=== PATIENT | male | born 1960 | race Caucasian/White ===

== ENCOUNTER 2020-05-25 17:40 | Inpatient (IN) | payer MEDICARE ==
[~2020-05-25] VITALS: Ht 172.7 cm; Wt 152.1 kg
--- NOTE | 2020-05-25 18:21 | PHYS DOC ---
General Adult EDM: Chief Complaint: CHEST PAIN HPI: HPI: Patient is a 60 year old male who presents with shortness of breath and chest pain. He has a past medical history of COPD and hypertension. He was sent over from his primary care for concern after an ECG in the office. He states that 2 weeks ago he started noticing some shortness of breath and chest pain with exertion. He states that he has a heavy pressure over the middle of his chest that does not radiate anywhere. He states it is only present with exertion and takes 3 to 4 minutes with rest to go away. Denies any associated nausea, vomiting, or dizziness. He states that he has also become more short of breath with movement, which resolved with rest. He states this shortness of breath feels different than his regular COPD. He also has increased leg swelling bilaterally. He has had this in the past but it usually goes away with lying flat. He has never tried wrapping his legs. He has gained over 23 pounds in the last 2 weeks. He is on a diuretic and is taking this regularly. He denies dizzi ness, headache, blurry vision, abdominal pain, and numbness or tingling anywhere. Review of Systems: Review of Systems: Constitutional: Denies fever or chills. [] Eyes: Denies change in visual acuity. [] HENT: Denies nasal congestion or sore throat. [] Respiratory: Denies cough, Positive shortness of breath. [] Cardiovascular: Positive chest pain and edema. [] GI: Denies abdominal pain, nausea, vomiting, bloody stools or diarrhea. [] : Denies dysuria. [] Musculoskeletal: Denies back pain or joint pain. [] Integument: Denies rash. [] Neurologic: Denies headache, focal weakness or sensory changes. [] Endocrine: Denies polyuria or polydipsia. [] Lymphatic: Denies swollen glands. [] Psychiatric: Denies depression or anxiety. [] Heart Score: HEART Score for Chest Pain: HEART Score for Chest Pain Response (Comments) Value History Slighlty/Non-Suspicious 0 ECG Normal 0 Age >45 - < 65 1 Troponin < Normal Limit 0 Total 1 Risk Factors: Risk Factors: DM, Current or recent (<one month) smoker, HTN, HLP, family history of CAD, obesity. Risk Scores: Score 0 - 3: 2.5% MACE over next 6 weeks - Discharge Home Score 4 - 6: 20.3% MACE over next 6 weeks - Admit for Clinical Observation Score 7 - 10: 72.7% MACE over next 6 weeks - Early Invasive Strategies Physical Exam: PE: Constitutional: Well developed, well nourished, no acute distress, non-toxic appearance. [] HENT: Normocephalic, atraumatic, bilateral external ears normal, oropharynx moist, no oral exudates, nose normal. [] Eyes: PERRLA, EOMI, conjunctiva normal, no discharge. [] Neck: Normal range of motion, no tenderness, supple, no stridor. [] Cardiovascular:Heart rate regular rhythm, no murmur [] Lungs & Thorax: Bilateral breath sounds clear to auscultation [] Abdomen: Bowel sounds normal, soft, no tenderness, no masses, no pulsatile masses. [] Skin: Warm, dry, no erythema, no rash. [] Back: No tenderness, no CVA tenderness. [] Extremities: No tenderness, no cyanosis, no clubbing, ROM intact, pitting edema bilateral lower extremities. [] Neurologic: Alert and oriented X 3, normal motor function, normal sensory fun ction, no focal deficits noted. [] Psychologic: Affect normal, judgement normal, mood normal. [] EKG: EKG: EKG performed at 550 heart rate 54 sinus bradycardia PAC no ST elevation no ST depression no acute MD [] Radiology/Procedures: Radiology/Procedures: [] Impression: Severe degenerative changes of the left shoulder. Cardiac silhouette is prominent in size. Mild interstitial opacities bilaterally with more focal component at right lung base IMPRESSION: * Mild interstitial opacities bilaterally with more focal component at right lung base. A portion of this could be chronic in nature but mild edema or interstitial infiltrate could have this appearance. Electronically signed by: Zander Jackson MD (05/25/2020 7:25 PM) [id number] Course & Med Decision Making: Course & Med Decision Making Pertinent Labs and Imaging studies reviewed. (See chart for details) [] Dragon Disclaimer: Dragon Disclaimer: This electronic medical record was generated, in whole or in part, using a voice recognition dictation system. Departure Departure Impression: Primary Impression: Congestive heart failure Additional Impressions: Hypertension Shortness of breath Disposition: ADMITTED INPT THIS HOSP Admitting Physician: KIMMIE Condition: STABLE GIN RUANO DO May 25, 2020 18:21
[2020-05-25 18:35] LABS: BASO % 1 % (0-3); EOS # 0.2 x10^3/uL (0.0-0.7); EOS % 3 % (0-3); HEMATOCRIT 36.4 % (39.0-53.0); HEMOGLOBIN 12.1 g/dL (13.0-17.5); LYMPH # 1.1 x10^3/uL (1.0-4.8); LYMPH % 19 % (24-48); MEAN CORPUSCULAR HEMOGLOBIN 32 pg (25-35); MEAN CORPUSCULAR HGB CONC 33 g/dL (31-37); MEAN CORPUSCULAR VOLUME 95 fL (79-100); MONO # 0.5 x10^3/uL (0.0-1.1); MONO % 8 % (0-9); NEUT # 4.1 x10^3/uL (1.8-7.7); NEUT % 70 % (31-73); PLATELET COUNT 225 x10^3/uL (140-400); RED BLOOD COUNT 3.82 x10^6/uL (4.30-5.70); RED CELL DISTRIBUTION WIDTH 13.9 % (11.5-14.5); WHITE BLOOD COUNT 5.9 x10^3/uL (4.0-11.0)
[2020-05-25 18:57] LABS: CALCIUM 8.7 mg/dL (8.5-10.1); CREATININE 1.3 mg/dL (0.7-1.3); GFR 55.9; POTASSIUM 4.3 mmol/L (3.5-5.1)
[2020-05-25] MEDS ORDERED: FUROSEMIDE 40 MG/4 ML VIAL. IVP ONE (19:00)
[2020-05-25] MEDS ORDERED: NITROGLYCERIN OINT 1 GM PACKET. TP ONE (19:00)
[2020-05-25 19:03] LABS: ALBUMIN/GLOBULIN RATIO 0.8 (1.0-1.7); TOTAL BILIRUBIN 0.3 mg/dL (0.2-1.0); TOTAL PROTEIN 6.7 g/dL (6.4-8.2)
[2020-05-25] MEDS ORDERED: LABETALOL 20 MG/4 ML DISP.SYRIN. IVP ONE (19:15)
--- NOTE | 2020-05-25 19:27 | RAD ---
INDICATION: Reason: shortness of breath / Spl. Instructions: / History: COMPARISON: None. FINDINGS: Single view of chest obtained. Severe degenerative changes of the left shoulder. Cardiac silhouette is prominent in size. Mild inter stitial opacities bilaterally with more focal component at right lung base IMPRESSION: * Mild interstitial opacities bilaterally with more focal component at right lung base. A portion of this could be chronic in nature but mild edema or interstitial infiltrate could have this appearance . Electronically signed by: Zander Jackson MD (05/25/2020 7:25 PM) [id number]
--- NOTE | 2020-05-25 21:58 | EKG ---
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
[2020-05-25] MEDS ORDERED: ONDANSETRON PF 4 MG/2 ML VIAL. IV PRN (22:00)
--- NOTE | 2020-05-25 22:30 | NUR ---
PT ADMITTED TO 204 WITH CHEST PAIN ACCOMPANIED BY STAFF VIA WHEELCHAIR. PT ALERT AND ORIENTED X4 DENIES CHEST PAIN AT THIS TIME. ADMISSION ASSESSMENT COMPLETE, ADMIT PACKET GIVEN. DR RHODES CALLED FOR HOME MEDICATIONS. PT ORIENTED TO STAFF UNIT AND POC. CALL LIGHT IN PLACE, WILL CONT TO MONITOR PT STATUS AND SAFETY. PMRN
[2020-05-25 23:06] VITALS: BP 170/82
[2020-05-26] MEDS ORDERED: PANTOPRAZOLE 40 MG TABLET.DR. PO ONE
[2020-05-26] MEDS ORDERED: HYDROcodone/APAP 7.5/325MG 1 TAB TABLET PO ONE
[2020-05-26] MEDS ORDERED: CARVEDILOL 3.125 MG TABLET. PO ONE
[2020-05-26 02:45] VITALS: BP 135/67
[2020-05-26] MEDS ORDERED: BUME2TAB3 PO (05:09)
[2020-05-26] MEDS ORDERED: LOSA-73 PO (05:09)
[2020-05-26] MEDS ORDERED: HYDR-2763 PO (05:09)
[2020-05-26] MEDS ORDERED: ASPI325T8 PO (05:09)
[2020-05-26] MEDS ORDERED: METH-38 PO (05:09)
[2020-05-26] MEDS ORDERED: MULT-496 PO (05:09)
[2020-05-26] MEDS ORDERED: ACET325T9 PO (05:09)
[2020-05-26] MEDS ORDERED: FLUT1BLS3 IH (05:09)
[2020-05-26] MEDS ORDERED: CARV3.12 PO (05:09)
[2020-05-26] MEDS ORDERED: OMEP20TA8 PO (05:09)
[2020-05-26] MEDS ORDERED: ASCO100T4 PO (05:09)
[2020-05-26] MEDS ORDERED: POTA20TA4 PO (05:09)
[2020-05-26] MEDS ORDERED: ALLO300T PO (05:09)
[2020-05-26 07:00] VITALS: BP 142/79
--- NOTE | 2020-05-26 08:50 | PDOC1 ---
History and Physical Date of Admission Date of Admission DATE: 05/26/20 TIME: 08:50 Identification/Chief Complaint Chief Complaint dictated Past Medical History Past Medical History medical history of COPD and hypertension GI: GERD Family History Family History: High Cholestrol, Hypertension Social History Smoke: Quit ALCOHOL: none Drugs: None Current Problem List Problem List Problems Medical Problems: (1) Congestive heart failure Status: Acute (2) Hypertension Status: Acute (3) Shortness of breath Status: Acute Current Medications Current Medications Current Medications Furosemide (Lasix) 40 mg 1X ONCE IVP Last administered on 05/25/20at 19:59; S tart 05/25/20 at 19:00; Stop 05/25/20 at 19:01; Status DC Nitroglycerin (Nitro-Bid Oint) 1 inch 1X ONCE TP ; Start 05/25/20 at 19:00; Stop 05/25/20 at 19:01; Status DC Labetalol HCl (Normodyne Iv Push) 20 mg 1X ONCE IVP Last administered on 05/25/20at 19:52; Start 05/25/20 at 19:15; Stop 05/25/20 at 19:16; Status DC Ondansetron HCl (Zofran) 4 mg PRN Q8HRS PRN IV NAUSEA/VOMITING 1ST CHOICE; Start 05/25/20 at 22:00; Stop 05/26/20 at 21:59 Acetaminophen/ Hydrocodone Bitart (Lortab 7.5/325) 1 tab 1X ONCE PO Last administered on 05/26/20at 00:36; Start 05/26/20 at 00:00; Stop 05/26/20 at 00:01; Status DC Pantoprazole Sodium (Protonix) 40 mg 1X ONCE PO Last administered on 05/26/20at 00:36; Start 05/26/20 at 00:00; Stop 05/26/20 at 00:01; Status DC Carvedilol (Coreg) 3.125 mg 1X ONCE PO Last administered on 05/26/20at 00:37; Start 05/26/20 at 00:00; Stop 05/26/20 at 00:01; Status DC Active Scripts Active Reported Trelegy Ellipta 100-62.5-25 (Fluticasone/Umeclidin/Vilanter) 1 Each Blst.w.dev 1 Puff IH DAILY Vitamin C (Ascorbic Acid) 100 Mg Tablet 1 Tab PO DAILY 30 Days Daily Value (Multivitamin) 1 Each Tablet 1 Tab PO DAILY 30 Days Tylenol (Acetaminophen) 325 Mg Tablet 2 Tab PO PRN Q4HRS Aspirin 325 Mg Tablet 325 Mg PO DAILY Allopurinol 300 Mg Tablet 300 Mg PO DAILY Hydrocodone-Acetamin 7.5-325 (Hydrocodone/Acetaminophen) 1 Each Tablet 1 Each PO TID Robaxin-750 (Methocarbamol) 750 Mg Tablet 750 Mg PO DAILY Losartan Potassium 50 Mg Tablet 50 Mg PO DAILY Coreg (Carvedilol) 3.125 Mg Tablet 3.125 Mg PO BIDWMEALS Omeprazole 20 Mg Tablet.dr 20 Mg PO BID Bumetanide 2 Mg Tablet 2 Mg PO DAILY Potassium Chloride (Potassium Chloride) 20 Meq Tablet.er 20 Meq PO DAILY Allergies Allergies: Coded Allergies: No Known Drug Allergies (Unverified , 05/25/20) ROS Review of System Constitutional: Denies fever or chills. [] Eyes: Denies change in visual acuity. [] HENT: Denies nasal congestion or sore throat. [] Respiratory: Denies cough, Positive shortness of breath. [] Cardiovascular: Positive chest pain and edema. [] GI: Denies abdominal pain, nausea, vomiting, bloody stools or diarrhea. [] : Denies dysuria. [] Musculoskeletal: Denies back pain or joint pain. [] Integument: Denies rash. [] Neurologic: Denies headache, focal weakness or sensory changes. [] Endocrine: Denies polyuria or polydipsia. [] Lymphatic: Denies swollen glands. [] Psychiatric: Denies depression or anxiety. [] 14 pt ros otherwise neg Physical Exam Physical Exam Constitutional: Well developed, well nourished, no acute distress, non-toxic appearance. [] HENT: Normocephalic, atraumatic, bilateral external ears normal, oropharynx moist, no oral exudates, nose normal. [] Eyes: PERRLA, EOMI, conjunctiva normal, no discharge. [] Neck: Normal range of motion, no tenderness, supple, no stridor. [] Cardiovascular:Heart rate regular rhythm, no murmur [] Lungs & Thorax: Bilateral breath sounds clear to auscultation [] Abdomen: Bowel sounds normal, soft, no tenderness, no masses, no pulsatile masses. [] Skin: Warm, dry, no erythema, no rash. [] Back: No tenderness, no CVA tenderness. [] Extremities: No tenderness, no cyanosis, no clubbing, ROM intact, 3 plus pitting edema bilateral lower extremities. [] Neurologic: Alert and oriented X 3, normal motor function, normal sensory function, no focal deficits noted. [] Psychologic: Affect normal, judgment normal, mood normal. [] General: Alert, Oriented X3, Cooperative HEENT: Atraumatic, EOMI, Mucous membr. moist/pink Breasts: Not examined Abdomen: Soft Rectal Exam: not examined PELVIC: Examination not indicated Extremities: No cyanosis Neuro: Normal speech, Cranial nerves 3-12 NL Psych/Mental Status: Mental status NL, Mood NL Vitals Vitals Vital Signs Date Time Temp Pulse Resp B/P (MAP) Pulse Ox O2 Delivery O2 Flow Rate FiO2 05/26/20 07:00 98.0 57 18 142/79 (100) 95 Nasal Cannula 2.0 98.0 Labs Labs Laboratory Tests Test 05/25/20 18:00 05/26/20 01:45 05/26/20 04:00 White Blood Count 5.9 x10^3/uL (4.0-11.0) Red Blood Count 3.82 x10^6/uL (4.30-5.70) Hemoglobin 12.1 g/dL (13.0-17.5) Hematocrit 36.4 % (39.0-53.0) Mean Corpuscular Volume 95 fL (79-100) Mean Corpuscular Hemoglobin 32 pg (25-35) Mean Corpuscular Hemoglobin Concent 33 g/dL (31-37) Red Cell Distribution Width 13.9 % (11.5-14.5) Platelet Count 225 x10^3/uL (140-400) Neutrophils (%) (Auto) 70 % (31-73) Lymphocytes (%) (Auto) 19 % (24-48) Monocytes (%) (Auto) 8 % (0-9) Eosinophils (%) (Auto) 3 % (0-3) Basophils (%) (Auto) 1 % (0-3) Neutrophils # (Auto) 4.1 x10^3/uL (1.8-7.7) Lymphocytes # (Auto) 1.1 x10^3/uL (1.0-4.8) Monocytes # (Auto) 0.5 x10^3/uL (0.0-1.1) Eosinophils # (Auto) 0.2 x10^3/uL (0.0-0.7) Basophils # (Auto) 0.0 x10^3/uL (0.0-0.2) Sodium Level 143 mmol/L (136-145) Potassium Level 4.3 mmol/L (3.5-5.1) Chloride Level 107 mmol/L (98-107) Carbon Dioxide Level 25 mmol/L (21-32) Anion Gap 11 (6-14) Blood Urea Nitrogen 25 mg/dL (8-26) Creatinine 1.3 mg/dL (0.7-1.3) Estimated GFR (Cockcroft-Gault) 55.9 BUN/Creatinine Ratio 19 (6-20) Glucose Level 94 mg/dL (70-99) Calcium Level 8.7 mg/dL (8.5-10.1) Total Bilirubin 0.3 mg/dL (0.2-1.0) Aspartate Amino Transf (AST/SGOT) 21 U/L (15-37) Alanine Aminotransferase (ALT/SGPT) 27 U/L (16-63) Alkaline Phosphatase 82 U/L (46-116) Troponin I Quantitative < 0.017 ng/mL (0.000-0.055) < 0.017 ng/mL (0.000-0.055) < 0.017 ng/mL (0.000-0.055) FF-Bkf-L-Type Natriuretic Peptide 909 pg/mL (0-124) Total Protein 6.7 g/dL (6.4-8.2) Albumin 3.0 g/dL (3.4-5.0) Albumin/Globulin Ratio 0.8 (1.0-1.7) Laboratory Tests Test 05/25/20 18:00 05/26/20 01:45 05/26/20 04:00 White Blood Count 5.9 x10^3/uL (4.0-11.0) Red Blood Count 3.82 x10^6/uL (4.30-5.70) Hemoglobin 12.1 g/dL (13.0-17.5) Hematocrit 36.4 % (39.0-53.0) Mean Corpuscular Volume 95 fL (79-100) Mean Corpuscular Hemoglobin 32 pg (25-35) Mean Corpuscular Hemoglobin Concent 33 g/dL (31-37) Red Cell Distribution Width 13.9 % (11.5-14.5) Platelet Count 225 x10^3/uL (140-400) Neutrophils (%) (Auto) 70 % (31-73) Lymphocytes (%) (Auto) 19 % (24-48) Monocytes (%) (Auto) 8 % (0-9) Eosinophils (%) (Auto) 3 % (0-3) Basophils (%) (Auto) 1 % (0-3) Neutrophils # (Auto) 4.1 x10^3/uL (1.8-7.7) Lymphocytes # (Auto) 1.1 x10^3/uL (1.0-4.8) Monocytes # (Auto) 0.5 x10^3/uL (0.0-1.1) Eosinophils # (Auto) 0.2 x10^3/uL (0.0-0.7) Basophils # (Auto) 0.0 x10^3/uL (0.0-0.2) Sodium Level 143 mmol/L (136-145) Potassium Level 4.3 mmol/L (3.5-5.1) Chloride Level 107 mmol/L (98-107) Carbon Dioxide Level 25 mmol/L (21-32) Anion Gap 11 (6-14) Blood Urea Nitrogen 25 mg/dL (8-26) Creatinine 1.3 mg/dL (0.7-1.3) Estimated GFR (Cockcroft-Gault) 55.9 BUN/Creatinine Ratio 19 (6-20) Glucose Level 94 mg/dL (70-99) Calcium Level 8.7 mg/dL (8.5-10.1) Total Bilirubin 0.3 mg/dL (0.2-1.0) Aspartate Amino Transf (AST/SGOT) 21 U/L (15-37) Alanine Aminotransferase (ALT/SGPT) 27 U/L (16-63) Alkaline Phosphatase 82 U/L (46-116) Troponin I Quantitative < 0.017 ng/mL (0.000-0.055) < 0.017 ng/mL (0.000-0.055) < 0.017 ng/mL (0.000-0.055) XW-Mpb-T-Type Natriuretic Peptide 909 pg/mL (0-124) Total Protein 6.7 g/dL (6.4-8.2) Albumin 3.0 g/dL (3.4-5.0) Albumin/Globulin Ratio 0.8 (1.0-1.7) VTE Prophylaxis Ordered VTE Prophylaxis Devices: No VTE Pharmacological Prophylaxi: Yes Assessment/Plan Assessment/Plan ASSESSMENT/PLAN ASSESSMENT/PLAN 1. Chest pain: UA features. Trops nml EKG SR without acute changes 2. Acute CHF with likely diastolic , peripheral edema 3. Morbid obesity 4. Hx of DM2 and HLP: 5. 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 Morbid obesity 7. HTN: controlled labile episodes 8. COPD: stable plan admit 1. iv diurese over the weekend and will do R/LHC on Friday cvc bed. echo weight loss encouraged, low salt intake dictated Justifications for Admission Other Justification WOODY BRAY MD May 26, 2020 08:50
[2020-05-26 09:58] LABS: MAGNESIUM 2.1 mg/dL (1.8-2.4)
[2020-05-26 09:59] LABS: CHOLESTEROL/HDL RATIO 2.4
--- NOTE | 2020-05-26 10:06 | PDOC2 ---
JAZ CODY BRIAR WOOD SORTER 05/26/20 1006: CARDIAC CONSULT DATE OF CONSULT Date of Consult DATE: 05/26/20 TIME: 09:32 REASON FOR CONSULT Reason for Consult: Chest pain, CHF REFERRING PHYSICIAN Referring Physician: Pepito SOURCE Source: Chart review, Patient HISTORY OF PRESENT ILLNESS HISTORY OF PRESENT ILLNESS This is a pleasant 60 yo male admitted for complains of chest pain and shortness of breath. Reports that he has been having exertional chest pressure and SHAIKH more in the last 10 days. No fever, chills, no anosmia or ageusia. Negative for PND or orthopnea. No nausea vomiting or diarrhea. Reports that he has gained about 23 pounds in the last 2 weeks. He has not increased his bumex dose. Reports that he just feel swollen all over. No hx of CAd or arrhythmia. No hx of PAYAL but does have COPD and not on any O2 supplement. His legs have been more swollen and has pain particularly the left. He had DM2 in the past but lost over 300 pounds since his gastric bypass 11 yrs ago. Also does not take statin. He takes BP med and takes PPI. No recent falls or injury. No prior covid-19 exposure. 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 Smoke: Quit ALCOHOL: none Drugs: None Lives: Alone CURRENT MEDICATIONS CURRENT MEDICATIONS Current Medications Medications (Trade) Dose Ordered Sig/Radha Route PRN Reason Start Time Stop Time Status Last Admin Dose Admin Furosemide (Lasix) 40 mg 1X ONCE IVP 05/25/20 19:00 05/25/20 19:01 DC 05/25/20 19:59 Labetalol HCl (Normodyne Iv Push) 20 mg 1X ONCE IVP 05/25/20 19:15 05/25/20 19:16 DC 05/25/20 19:52 Acetaminophen/ Hydrocodone Bitart (Lortab 7.5/325) 1 tab 1X ONCE PO 05/26/20 00:00 05/26/20 00:01 DC 05/26/20 00:36 Pantoprazole Sodium (Protonix) 40 mg 1X ONCE PO 05/26/20 00:00 05/26/20 00:01 DC 05/26/20 00:36 Carvedilol (Coreg) 3.125 mg 1X ONCE PO 05/26/20 00:00 05/26/20 00:01 DC 05/26/20 00:37 ALLERGIES ALLERGIES: Coded Allergies: No Known Drug Allergies (Unverified , 05/25/20) ROS Review of System 14 point ROS evaluated with pertinent positives noted per HPI PHYSICAL EXAM General: Alert, Oriented X3, Cooperative, No acute distress HEENT: Atraumatic, Mucous membr. moist/pink Lungs: Other (diminished) Heart: Regular rate (SR with PACs), Other (distant heart spounds) Abdomen: Soft, Other (obese) Extremities: No cyanosis, Other (2-3+ bilateral LE pitting edema) Skin: No breakdown, No significant lesion Neuro: Normal speech, Sensation intact Psych/Mental Status: Mental status NL, Mood NL MUSCULOSKELETAL: Osteoarthritic changes both hands VITALS/I&O VITALS/I&O: Vital Signs Date Time Temp Pulse Resp B/P (MAP) Pulse Ox O2 Delivery O2 Flow Rate FiO2 05/26/20 08:00 Room Air 05/26/20 07:00 98.0 57 18 142/79 (100) 95 2.0 98.0 I & O 05/25/20 05/25/20 05/26/20 15:00 23:00 07:00 Intake Total 590 ml Output Total 1900 ml 550 ml Balance -1900 ml 40 ml LABS Lab: Laboratory Tests Test 05/25/20 18:00 05/26/20 01:45 05/26/20 04:00 White Blood Count 5.9 x10^3/uL (4.0-11.0) Red Blood Count 3.82 x10^6/uL (4.30-5.70) L Hemoglobin 12.1 g/dL (13.0-17.5) L Hematocrit 36.4 % (39.0-53.0) L Mean Corpuscular Volume 95 fL (79-100) Mean Corpuscular Hemoglobin 32 pg (25-35) Mean Corpuscular Hemoglobin Concent 33 g/dL (31-37) Red Cell Distribution Width 13.9 % (11.5-14.5) Platelet Count 225 x10^3/uL (140-400) Neutrophils (%) (Auto) 70 % (31-73) Lymphocytes (%) (Auto) 19 % (24-48) L Monocytes (%) (Auto) 8 % (0-9) Eosinophils (%) (Auto) 3 % (0-3) Basophils (%) (Auto) 1 % (0-3) Neutrophils # (Auto) 4.1 x10^3/uL (1.8-7.7) Lymphocytes # (Auto) 1.1 x10^3/uL (1.0-4.8) Monocytes # (Auto) 0.5 x10^3/uL (0.0-1.1) Eosinophils # (Auto) 0.2 x10^3/uL (0.0-0.7) Basophils # (Auto) 0.0 x10^3/uL (0.0-0.2) Sodium Level 143 mmol/L (136-145) Potassium Level 4.3 mmol/L (3.5-5.1) Chloride Level 107 mmol/L (98-107) Carbon Dioxide Level 25 mmol/L (21-32) Anion Gap 11 (6-14) Blood Urea Nitrogen 25 mg/dL (8-26) Creatinine 1.3 mg/dL (0.7-1.3) Estimated GFR (Cockcroft-Gault) 55.9 BUN/Creatinine Ratio 19 (6-20) Glucose Level 94 mg/dL (70-99) Calcium Level 8.7 mg/dL (8.5-10.1) Total Bilirubin 0.3 mg/dL (0.2-1.0) Aspartate Amino Transferase (AST) 21 U/L (15-37) Alanine Aminotransferase (ALT) 27 U/L (16-63) Alkaline Phosphatase 82 U/L (46-116) Troponin I Quantitative < 0.017 ng/mL (0.000-0.055) < 0.017 ng/mL (0.000-0.055) < 0.017 ng/mL (0.000-0.055) XE-Glj-N-Type Natriuretic Peptide 909 pg/mL (0-124) H Total Protein 6.7 g/dL (6.4-8.2) Albumin 3.0 g/dL (3.4-5.0) L Albumin/Globulin Ratio 0.8 (1.0-1.7) L Laboratory Tests 05/25/20 18:00 Laboratory Tests 05/25/20 18:00 ASSESSMENT/PLAN ASSESSMENT/PLAN 1. Chest pain: UA features. Trops nml EKG SR without acute changes 2. Acute CHF with likely diastolic dysfunction 23# wt gain in 2 weeks 3. Morbid obesity 4. Hx of DM2 and HLP: resolved after >300# wt loss from gastric bypass 5. 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 Morbid obesity 7. HTN: controlled with intermittent labile episodes 8. COPD: stable Recommendations 1. Aggressive diurese over the weekend and will do R/LHC on Friday. Risks and benefits discussed and agreeable to proceed. Will obtain Covid-19 PCR in anticipation of the latter 2. TTE and will check venous doppler to discern any associated DVT 3. Lasix therapy, Strict I & O. dietitian consult 4. Continue PPI and ASA. Hold losartan for diuretic optimization. Hold coreg for now with HR noted in the 40-50s no pauses. Will start on imdur. Hydralazine IV PRN 5. Consider outpt PAYAL w/u HECTOR ENRIQUEZ MD 05/26/20 2243: CARDIAC CONSULT ASSESSMENT/PLAN ASSESSMENT/PLAN Pt. seen and examined. Agree with above VB DEVELOPER note. Will plan for right and left heart cath on friday for exertional dyspnea, acute decompensated HF. Discussed risks/yovany, patient willing to proceed. Will follow along. DVT scan negative. JAZ CODY APRN May 26, 2020 10:06 HECTOR ENRIQUEZ MD May 26, 2020 22:43
[2020-05-26] MEDS ORDERED: hydrALAZINE 20 MG/ML VIAL. IVP PRN (10:15)
[2020-05-26 10:26] LABS: CALCIUM 8.6 mg/dL (8.5-10.1); CREATININE 1.3 mg/dL (0.7-1.3); GFR 55.9; POTASSIUM 4.3 mmol/L (3.5-5.1)
--- NOTE | 2020-05-26 10:58 | NUR ---
SS following for discharge planning. SS reviewed pt chart and discussed with pt RN. Pt is from home and is currently on room air. Pt on IV Lasix. Cardiology consulted. Left and right heart cath scheduled for 05/29/2020. COVID19 test pending. SS will continue to follow for discharge planning.
[2020-05-26 11:00] VITALS: BP 165/71
[2020-05-26] MEDS ORDERED: ONDANSETRON PF 4 MG/2 ML VIAL. IV PRN (11:30)
[2020-05-26] MEDS ORDERED: guaiFENesin ORAL 200 MG/10 ML LIQUID. PO PRN (11:30)
[2020-05-26] MEDS ORDERED: SODIUM PHOSPHATES 19/7GM 133 ML ENEMA. PR PRN (11:30)
[2020-05-26] MEDS ORDERED: ACETAMINOPHEN 325 MG TABLET. PO PRN (11:30)
[2020-05-26] MEDS ORDERED: ALBUTEROL SULFATE 2.5 MG/3 ML NEBU. NEB PRN (11:30)
[2020-05-26] MEDS ORDERED: MAG HYDROX/ALUMINUM HYD/SIMETH 30 ML ORAL.SUSP PO PRN (11:30)
[2020-05-26] MEDS ORDERED: DOCUSATE SODIUM 100 MG CAPSULE. PO PRN (11:30)
[2020-05-26] MEDS ORDERED: 0.9 % SODIUM CHLORIDE 10 ML DISP.SYRIN. IV PRN (11:30)
--- NOTE | 2020-05-26 11:54 | HP ---
ADMIT DATE: 05/25/2020 CHIEF COMPLAINT: Chest tightness, swelling of ankles, shortness of breath. HISTORY OF PRESENT ILLNESS: This is a pleasant 60-year-old male from [place], [place]. 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 He states he has been more short of breath and he has had chest discomfort especially with exertion for the last 10-14 days. Denies fever or chills. Denies orthopnea. No nausea or vomiting. No evidence of swelling in his ankles. States he drinks three cups of coffee a day and a large container of water a day. He is a remote smoker, but does not use supplemental oxygen. States that he has diabetes and lost 300 from his gastric bypass 11 years prior. Denies any recent falls or injury. prepares most of the does eat quite a bit of sodium, eats a regular diet. CURRENT MEDICATIONS: Please see medication reconciliation. PAST MEDICAL HISTORY: Significant for hypertension, hyperlipidemia, COPD, esophageal reflux disease, osteoarthritis, gout, diabetes, , Pushpa-en-Y bypass in 2009. FAMILY HISTORY: Positive for obesity. 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 Denies alcohol use. Denies drug use. [place]. CURRENT MEDICATIONS: Please see medication reconciliation. ALLERGIES: He has no known drug allergies. REVIEW OF SYSTEMS: A 14-point review of systems was otherwise negative except for some swelling in the ankles. Denies nausea or vomiting. Denies focal weakness and chest tightness is improved. PHYSICAL EXAMINATION: GENERAL: This is an alert, oriented male, very obese. Weight is 158 kg . NECK: Supple. HEENT: Throat and pharynx clear. LUNGS: Distant, clear breath sounds. CARDIOVASCULAR: Regular rate without murmur, S3 or S4. ABDOMEN: Soft, very obese. EXTREMITIES: 3+ lower extremity pitting edema bilaterally. SKIN: Without breakdown. NEUROLOGIC: Cranial nerves 2-12 grossly intact. There is no facial asymmetry. Muscles of mastication are symmetric. Reasoning and judgment are normal. VITAL SIGNS: Temperature 98, blood pressure 142/79, O2 sat 95% on 2 liters. LABORATORY DATA: White count is 5.9, hemoglobin 12.1, MCV 95, platelets 225,000. Differential 70% segs. Sodium is 143, potassium 4.3, chloride 107, BUN 25, creatinine 1.3, GFR 55.9, glucose 94. Troponin is negative x 3. ProBNP is 909, albumin 3.0. ASSESSMENT: This is a 60-year-old male with' 1. History of heart failure, likely diastolic dysfunction with a 20-pound weight gain in 2 weeks. 2. Peripheral edema. 3. Chest pain, probable esophageal reflux disease. Troponin negative x 5. 4. Extreme morbid obesity. 5. Diabetes. 6. History of gastric bypass on exam. 7. Hypertension. 8. Chronic obstructive pulmonary disease, stable. PLAN: 1. Aggressive diuresis. Cardiology is planning a right and left heart catheterization on Friday. We will obtain COVID-19 PCR. We will obtain a transthoracic echocardiogram to rule out deep venous thrombosis. 2. IV Lasix. 3. . 4. . 5. Continue PPI for GERD and aspirin. Hold losartan, hold Coreg. We will begin Imdur, IV hydralazine p.r.n. for blood pressure control. Consider outpatient sleep apnea study. I discussed the patient's care with nurse on the floor. Anticipate length of stay 4-5 days. Chest x-ray shows interstitial infiltrate, probably consistent with mild pulmonary edema. This is a supplement to the dictated data provided earlier. Total time spent with the patient's exam, chart review was 63 minutes. Greater than 50% of time was spent with the patient's exam, chart review, the patient care, coordination and consultation. WOODY BRAY MD DR: LIANG/hung JOB#: [id number] / [id number]
[2020-05-26] MEDS: POTASSIUM CHLORIDE 20 MEQ TABLET.ER. PO SCH (12:26)
[2020-05-26] MEDS: ASCORBIC ACID 500 MG TABLET PO SCH (12:27)
[2020-05-26] MEDS: MULTIVITAMIN with MINERAL TABLET. PO SCH (12:27)
[2020-05-26] MEDS: ASPIRIN ENTERIC COATED 81 MG TABLET.DR. PO SCH (12:27)
[2020-05-26] MEDS: ALLOPURINOL 300 MG TABLET. PO SCH (12:27)
[2020-05-26] MEDS: ENOXAPARIN 40 MG/0.4 ML SYRINGE. SQ SCH (12:28)
--- NOTE | 2020-05-26 13:03 | RAD ---
MR#: [id number] Date of Study: 05/26/2020 Ordering Physician: JAZ CODY, Referring Physician: JAZ CODY, Tech: Kenzie Farah RDMS, RVT, RTR APPROVED REPORT Bilateral Lower Extremity Venous Study for DVT Patient Location: IN-PATIENT Indications Lower Extremity Edema: Bilateral Findings The bilateral lower extremity deep veins were evaluated for thrombus with color Doppler, spectral and grayscale images. On the right the grayscale images of the common femoral, superficial femoral and popliteal veins do n ot demonstrate any evidence of thrombus and these veins appear to be compressible. The below-knee vei ns were not well visualized but grossly appear to be compressible. Spectral imaging and color Doppler do not reveal any evidence of obstruction to flow with normal respirophasic variation above the knee . Below the knee there is spontaneous flow noted. On the left, the grayscale images of the common femoral, superficial femoral and popliteal veins do n ot demonstrate any evidence of thrombus and these veins appear to be compressible. The below-knee vei ns again were not well visualized but grossly appear to be compressible. Spectral imaging and color D oppler do not reveal any evidence of obstruction to flow with normal respirophasic variation above th e knee. The below-knee veins demonstrate spontaneous flow. Critical Notification Critical Value: No <Conclusion> 1. No clear evidence of DVT in the BLE 2. Right sided bakers cyst measuring 4.6 x 3.9 x 2.3 cm. Signed by : Mick Madsen, Electronically Approved : 05/26/2020 13:03:10
[2020-05-26] MEDS: HYDROcodone/APAP 7.5/325MG 1 TAB TABLET PO SCH ×2 (13:28→20:46)
[2020-05-26 13:35] LABS: BILIRUBIN,URINE NEGATIVE (NEG); CLARITY,URINE CLEAR; COLOR,URINE YELLOW; NITRITE,URINE NEGATIVE (NEG); PH,URINE 6.5 (<5.0-8.0); PROTEIN,URINE >=300 mg/dL (NEG-TRACE)
[2020-05-26 13:47] LABS: HYALINE CASTS, URINE FEW /HPF
[2020-05-26 13:49] LABS: WBC,URINE OCC /HPF (0-4)
[2020-05-26 13:51] LABS: BACTERIA,URINE 0 /HPF (0-FEW)
[2020-05-26] MEDS: FUROSEMIDE 40 MG/4 ML VIAL. IVP SCH (16:46)
[2020-05-26] MEDS ORDERED: CARVEDILOL 3.125 MG TABLET. PO SCH (17:00)
--- NOTE | 2020-05-26 17:07 | NUR ---
rapid covid and pcr covid sent to lab at approx 1700
[2020-05-26 19:43] VITALS: BP 134/65
[2020-05-26 22:53] VITALS: BP 153/80
[2020-05-27 03:28] VITALS: BP 141/68
[2020-05-27] MEDS: PANTOPRAZOLE 40 MG TABLET.DR. PO SCH (05:45)
[2020-05-27 07:00] VITALS: BP 153/57
[2020-05-27 07:17] LABS: BASO % 1 % (0-3); EOS # 0.2 x10^3/uL (0.0-0.7); EOS % 4 % (0-3); HEMATOCRIT 35.6 % (39.0-53.0); LYMPH # 1.1 x10^3/uL (1.0-4.8); LYMPH % 22 % (24-48); MEAN CORPUSCULAR HEMOGLOBIN 32 pg (25-35); MEAN CORPUSCULAR HGB CONC 34 g/dL (31-37); MEAN CORPUSCULAR VOLUME 96 fL (79-100); MONO # 0.5 x10^3/uL (0.0-1.1); MONO % 10 % (0-9); NEUT # 3.1 x10^3/uL (1.8-7.7); NEUT % 64 % (31-73); PLATELET COUNT 192 x10^3/uL (140-400); RED BLOOD COUNT 3.71 x10^6/uL (4.30-5.70); RED CELL DISTRIBUTION WIDTH 13.9 % (11.5-14.5); WHITE BLOOD COUNT 4.8 x10^3/uL (4.0-11.0)
[2020-05-27 07:31] LABS: CALCIUM 8.5 mg/dL (8.5-10.1); CREATININE 1.4 mg/dL (0.7-1.3); GFR 51.4; POTASSIUM 4.3 mmol/L (3.5-5.1)
[2020-05-27] MEDS: ALLOPURINOL 300 MG TABLET. PO SCH (08:37)
[2020-05-27] MEDS: ASCORBIC ACID 500 MG TABLET PO SCH (08:37)
[2020-05-27] MEDS: MULTIVITAMIN with MINERAL TABLET. PO SCH (08:37)
[2020-05-27] MEDS: POTASSIUM CHLORIDE 20 MEQ TABLET.ER. PO SCH (08:40)
[2020-05-27] MEDS: HYDROcodone/APAP 7.5/325MG 1 TAB TABLET PO SCH ×3 (08:40→21:11)
[2020-05-27] MEDS: FUROSEMIDE 40 MG/4 ML VIAL. IVP SCH ×2 (08:41→15:36)
[2020-05-27] MEDS: ASPIRIN ENTERIC COATED 81 MG TABLET.DR. PO SCH (08:41)
[2020-05-27] MEDS: ISOSORBIDE MONONITRATE ER 30 MG TAB.ER.24H PO SCH (08:42)
--- NOTE | 2020-05-27 10:28 | PDOC ---
PROGRESS NOTES Date of Service: DATE: 05/27/20 TIME: 10:28 Chief Complaint Chief Complaint ASSESSMENT: This is a 60-year-old male with' 1. History of heart failure, likely diastolic dysfunction with a 20-pound weight gain in 2 weeks. 2. Peripheral edema. 3. Chest pain, probable esophageal reflux disease. Troponin negative x 5. 4. Extreme morbid obesity. 5. Diabetes. 6. History of gastric bypass on exam. 7. Hypertension. 8. Chronic obstructive pulmonary disease, stable. 9. Right sided bakers cyst measuring 4.6 x 3.9 x 2.3 cm. PLAN: 1. Aggressive diuresis. Cardiology is planning a right and left heart catheterization on Friday. We will obtain COVID-19 PCR. We will obtain a transthoracic echocardiogram venous dopplers to rule out deep venous thrombosis. 2. IV Lasix. 3. dvt prophylaxis 4. weight loss encouraged 5. Continue PPI for GERD and aspirin. Hold losartan, hold Coreg. Imdur, IV hydralazine p.r.n. for blood pressure control. outpatient sleep apnea study. I discussed the patient's care with nurse on the floor. ortho can see as out pt for kennedy's cyst Anticipate length of stay 4-5 days. Chest x-ray shows interstitial infiltrate, probably consistent with mild pulmonary edema. This is a supplement to the dictated data in computer provided earlier. Total time spent with the patient's exam, chart review was 37 minutes. Greater than 50% of time was spent with the patient's exam, chart review, the patient care, coordination and consultation. History of Present Illness History of Present Illness HISTORY OF PRESENT ILLNESS: pleasant 60-year-old male from [place], [place]. 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 He states he has been more short of breath and he has had chest discomfort especially with exertion for the last 10-14 days. Denies fever or chills. Denies orthopnea. No nausea or vomiting. No evidence of swelling in his ankles. States he drinks three cups of coffee a day and a large container of water a day. He is a remote smoker, but does not use supplemental oxygen. States that he has diabetes and lost 300 lbs from his gastric bypass 11 years prior. Denies any recent falls or injury. prepares most of the meals does eat quite a bit of sodium, eats a regular diet. CURRENT MEDICATIONS: Please see medication reconciliation. PAST MEDICAL HISTORY: Significant for hypertension, hyperlipidemia, COPD, esophageal reflux disease, osteoarthritis, gout, diabetes, , Pushpa-en-Y bypass in 2010. FAMILY HISTORY: Positive for obesity. 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 Denies alcohol use. Denies drug use. [place] alone [place] the country near [place]. CURRENT MEDICATIONS: Please see medication reconciliation. ALLERGIES: He has no known drug allergies. REVIEW OF SYSTEMS: A 14-point review of systems was otherwise negative except for swelling in the ankles. Denies nausea or vomiting. Denies focal weakness chest tightness is improved. Vitals Vitals Vital Signs Date Time Temp Pulse Resp B/P (MAP) Pulse Ox O2 Delivery O2 Flow Rate FiO2 05/27/20 09:40 92 Room Air 2.0 05/27/20 08:42 54 153/57 05/27/20 07:00 98.1 16 98.1 Physical Exam General: Alert, Oriented X3, Cooperative Heart: Regular rate (SR with PACs), Normal S1, Other (distant heart spounds) Lungs: Clear, Other (diminished) Abdomen: Soft, No tenderness, Other (very obese) Extremities: No cyanosis Skin: No breakdown, No significant lesion Labs LABS INDICATION: Reason: shortness of breath / Spl. Instructions: / History: COMPARISON: None. FINDINGS: Single view of chest obtained. Severe degenerative changes of the left shoulder. Cardiac silhouette is prominent in size. Mild interstitial opacities bilaterally with more focal component at right lung base IMPRESSION: * Mild interstitial opacities bilaterally with more focal component at right lung base. A portion of this could be chronic in nature but mild edema or interstitial infiltrate could have this appearance. Electronically signed by: Olvin Paul MD (05/25/2020 7:25 PM) [id number] DICTATED and SIGNED BY: OLVIN PAUL MD DATE: 05/25/20 [id number] APPROVED REPORT Bilateral Lower Extremity Venous Study for DVT Patient Location: IN-PATIENT Indications Lower Extremity Edema: Bilateral Findings The bilateral lower extremity deep veins were evaluated for thrombus with color Doppler, spectral and grayscale images. On the right the grayscale images of the common femoral, superficial femoral and popliteal veins do not demonstrate any evidence of thrombus and these veins appear to be compressible. The below-knee veins were not well visualized but grossly appear to be compressible. Spectral imaging and color Doppler do not reveal any evidence of obstruction to flow with normal respirophasic variation above the knee. Below the knee there is spontaneous flow noted. On the left, the grayscale images of the common femoral, superficial femoral and popliteal veins do not demonstrate any evidence of thrombus and these veins appear to be compressible. The below-knee veins again were not well visualized but grossly appear to be compressible. Spectral imaging and color Doppler do not reveal any evidence of obstruction to flow with normal respirophasic variation above the knee. The below-knee veins demonstrate spontaneous flow. Critical Notification Critical Value: No <Conclusion> 1. No clear evidence of DVT in the BLE 2. Right sided bakers cyst measuring 4.6 x 3.9 x 2.3 cm. Signed by : Hector Madsen, Electronically Approved : 05/26/2020 13:03:10 DICTATED and SIGNED BY: HECTOR MADSEN MD Laboratory Tests Test 05/26/20 13:05 05/26/20 17:02 05/27/20 06:20 Urine Collection Type Unknown Urine Color Yellow Urine Clarity Clear Urine pH 6.5 (<5.0-8.0) Urine Specific Maidens 1.015 (1.000-1.030) Urine Protein >=300 mg/dL (NEG-TRACE) Urine Glucose (UA) Negative mg/dL (NEG) Urine Ketones (Stick) Negative mg/dL (NEG) Urine Blood Negative (NEG) Urine Nitrite Negative (NEG) Urine Bilirubin Negative (NEG) Urine Urobilinogen Dipstick 1.0 mg/dL (0.2 mg/dL) Urine Leukocyte Esterase Negative (NEG) Urine RBC 1-2 /HPF (0-2) Urine WBC Occ /HPF (0-4) Urine Squamous Epithelial Cells Few /LPF Urine Bacteria 0 /HPF (0-FEW) Urine Hyaline Casts Few /HPF SARS-CoV-2 Antigen (Rapid) Negative (NEGATIVE) White Blood Count 4.8 x10^3/uL (4.0-11.0) Red Blood Count 3.71 x10^6/uL (4.30-5.70) Hemoglobin 12.0 g/dL (13.0-17.5) Hematocrit 35.6 % (39.0-53.0) Mean Corpuscular Volume 96 fL (79-100) Mean Corpuscular Hemoglobin 32 pg (25-35) Mean Corpuscular Hemoglobin Concent 34 g/dL (31-37) Red Cell Distribution Width 13.9 % (11.5-14.5) Platelet Count 192 x10^3/uL (140-400) Neutrophils (%) (Auto) 64 % (31-73) Lymphocytes (%) (Auto) 22 % (24-48) Monocytes (%) (Auto) 10 % (0-9) Eosinophils (%) (Auto) 4 % (0-3) Basophils (%) (Auto) 1 % (0-3) Neutrophils # (Auto) 3.1 x10^3/uL (1.8-7.7) Lymphocytes # (Auto) 1.1 x10^3/uL (1.0-4.8) Monocytes # (Auto) 0.5 x10^3/uL (0.0-1.1) Eosinophils # (Auto) 0.2 x10^3/uL (0.0-0.7) Basophils # (Auto) 0.0 x10^3/uL (0.0-0.2) Sodium Level 143 mmol/L (136-145) Potassium Level 4.3 mmol/L (3.5-5.1) Chloride Level 108 mmol/L (98-107) Carbon Dioxide Level 30 mmol/L (21-32) Anion Gap 5 (6-14) Blood Urea Nitrogen 25 mg/dL (8-26) Creatinine 1.4 mg/dL (0.7-1.3) Estimated GFR (Cockcroft-Gault) 51.4 Glucose Level 84 mg/dL (70-99) Calcium Level 8.5 mg/dL (8.5-10.1) Assessment and Plan Assessmemt and Plan Problems Medical Problems: (1) Congestive heart failure Status: Acute (2) Hypertension Status: Acute (3) Shortness of breath Status: Acute Comment Review of Relevant I have reviewed the following items paulo (where applicable) has been applied. Labs Laboratory Tests Test 05/25/20 18:00 05/26/20 01:45 05/26/20 04:00 05/26/20 09:55 White Blood Count 5.9 x10^3/uL (4.0-11.0) Red Blood Count 3.82 x10^6/uL (4.30-5.70) Hemoglobin 12.1 g/dL (13.0-17.5) Hematocrit 36.4 % (39.0-53.0) Mean Corpuscular Volume 95 fL (79-100) Mean Corpuscular Hemoglobin 32 pg (25-35) Mean Corpuscular Hemoglobin Concent 33 g/dL (31-37) Red Cell Distribution Width 13.9 % (11.5-14.5) Platelet Count 225 x10^3/uL (140-400) Neutrophils (%) (Auto) 70 % (31-73) Lymphocytes (%) (Auto) 19 % (24-48) Monocytes (%) (Auto) 8 % (0-9) Eosinophils (%) (Auto) 3 % (0-3) Basophils (%) (Auto) 1 % (0-3) Neutrophils # (Auto) 4.1 x10^3/uL (1.8-7.7) Lymphocytes # (Auto) 1.1 x10^3/uL (1.0-4.8) Monocytes # (Auto) 0.5 x10^3/uL (0.0-1.1) Eosinophils # (Auto) 0.2 x10^3/uL (0.0-0.7) Basophils # (Auto) 0.0 x10^3/uL (0.0-0.2) Sodium Level 143 mmol/L (136-145) 143 mmol/L (136-145) Potassium Level 4.3 mmol/L (3.5-5.1) 4.3 mmol/L (3.5-5.1) Chloride Level 107 mmol/L (98-107) 106 mmol/L (98-107) Carbon Dioxide Level 25 mmol/L (21-32) 31 mmol/L (21-32) Anion Gap 11 (6-14) 6 (6-14) Blood Urea Nitrogen 25 mg/dL (8-26) 20 mg/dL (8-26) Creatinine 1.3 mg/dL (0.7-1.3) 1.3 mg/dL (0.7-1.3) Estimated GFR (Cockcroft-Gault) 55.9 55.9 BUN/Creatinine Ratio 19 (6-20) Glucose Level 94 mg/dL (70-99) 99 mg/dL (70-99) Calcium Level 8.7 mg/dL (8.5-10.1) 8.6 mg/dL (8.5-10.1) Total Bilirubin 0.3 mg/dL (0.2-1.0) Aspartate Amino Transf (AST/SGOT) 21 U/L (15-37) Alanine Aminotransferase (ALT/SGPT) 27 U/L (16-63) Alkaline Phosphatase 82 U/L (46-116) Troponin I Quantitative < 0.017 ng/mL (0.000-0.055) < 0.017 ng/mL (0.000-0.055) < 0.017 ng/mL (0.000-0.055) HC-Gif-Z-Type Natriuretic Peptide 909 pg/mL (0-124) Total Protein 6.7 g/dL (6.4-8.2) Albumin 3.0 g/dL (3.4-5.0) Albumin/Globulin Ratio 0.8 (1.0-1.7) Magnesium Level 2.1 mg/dL (1.8-2.4) Triglycerides Level 111 mg/dL (0-150) Cholesterol Level 141 mg/dL (0-200) LDL Cholesterol, Calculated 59 mg/dL (0-100) VLDL Cholesterol, Calculated 22 mg/dL (0-40) Non-HDL Cholesterol Calculated 81 mg/dL (0-129) HDL Cholesterol 60 mg/dL (40-60) Cholesterol/HDL Ratio 2.4 Thyroid Stimulating Hormone (TSH) 1.796 uIU/mL (0.358-3.74) Test 05/26/20 13:05 05/26/20 17:02 05/27/20 06:20 Urine Collection Type Unknown Urine Color Yellow Urine Clarity Clear Urine pH 6.5 (<5.0-8.0) Urine Specific Maidens 1.015 (1.000-1.030) Urine Protein >=300 mg/dL (NEG-TRACE) Urine Glucose (UA) Negative mg/dL (NEG) Urine Ketones (Stick) Negative mg/dL (NEG) Urine Blood Negative (NEG) Urine Nitrite Negative (NEG) Urine Bilirubin Negative (NEG) Urine Urobilinogen Dipstick 1.0 mg/dL (0.2 mg/dL) Urine Leukocyte Esterase Negative (NEG) Urine RBC 1-2 /HPF (0-2) Urine WBC Occ /HPF (0-4) Urine Squamous Epithelial Cells Few /LPF Urine Bacteria 0 /HPF (0-FEW) Urine Hyaline Casts Few /HPF SARS-CoV-2 Antigen (Rapid) Negative (NEGATIVE) White Blood Count 4.8 x10^3/uL (4.0-11.0) Red Blood Count 3.71 x10^6/uL (4.30-5.70) Hemoglobin 12.0 g/dL (13.0-17.5) Hematocrit 35.6 % (39.0-53.0) Mean Corpuscular Volume 96 fL (79-100) Mean Corpuscular Hemoglobin 32 pg (25-35) Mean Corpuscular Hemoglobin Concent 34 g/dL (31-37) Red Cell Distribution Width 13.9 % (11.5-14.5) Platelet Count 192 x10^3/uL (140-400) Neutrophils (%) (Auto) 64 % (31-73) Lymphocytes (%) (Auto) 22 % (24-48) Monocytes (%) (Auto) 10 % (0-9) Eosinophils (%) (Auto) 4 % (0-3) Basophils (%) (Auto) 1 % (0-3) Neutrophils # (Auto) 3.1 x10^3/uL (1.8-7.7) Lymphocytes # (Auto) 1.1 x10^3/uL (1.0-4.8) Monocytes # (Auto) 0.5 x10^3/uL (0.0-1.1) Eosinophils # (Auto) 0.2 x10^3/uL (0.0-0.7) Basophils # (Auto) 0.0 x10^3/uL (0.0-0.2) Sodium Level 143 mmol/L (136-145) Potassium Level 4.3 mmol/L (3.5-5.1) Chloride Level 108 mmol/L (98-107) Carbon Dioxide Level 30 mmol/L (21-32) Anion Gap 5 (6-14) Blood Urea Nitrogen 25 mg/dL (8-26) Creatinine 1.4 mg/dL (0.7-1.3) Estimated GFR (Cockcroft-Gault) 51.4 Glucose Level 84 mg/dL (70-99) Calcium Level 8.5 mg/dL (8.5-10.1) Laboratory Tests Test 05/26/20 13:05 05/26/20 17:02 05/27/20 06:20 Urine Collection Type Unknown Urine Color Yellow Urine Clarity Clear Urine pH 6.5 (<5.0-8.0) Urine Specific Maidens 1.015 (1.000-1.030) Urine Protein >=300 mg/dL (NEG-TRACE) Urine Glucose (UA) Negative mg/dL (NEG) Urine Ketones (Stick) Negative mg/dL (NEG) Urine Blood Negative (NEG) Urine Nitrite Negative (NEG) Urine Bilirubin Negative (NEG) Urine Urobilinogen Dipstick 1.0 mg/dL (0.2 mg/dL) Urine Leukocyte Esterase Negative (NEG) Urine RBC 1-2 /HPF (0-2) Urine WBC Occ /HPF (0-4) Urine Squamous Epithelial Cells Few /LPF Urine Bacteria 0 /HPF (0-FEW) Urine Hyaline Casts Few /HPF SARS-CoV-2 Antigen (Rapid) Negative (NEGATIVE) White Blood Count 4.8 x10^3/uL (4.0-11.0) Red Blood Count 3.71 x10^6/uL (4.30-5.70) Hemoglobin 12.0 g/dL (13.0-17.5) Hematocrit 35.6 % (39.0-53.0) Mean Corpuscular Volume 96 fL (79-100) Mean Corpuscular Hemoglobin 32 pg (25-35) Mean Corpuscular Hemoglobin Concent 34 g/dL (31-37) Red Cell Distribution Width 13.9 % (11.5-14.5) Platelet Count 192 x10^3/uL (140-400) Neutrophils (%) (Auto) 64 % (31-73) Lymphocytes (%) (Auto) 22 % (24-48) Monocytes (%) (Auto) 10 % (0-9) Eosinophils (%) (Auto) 4 % (0-3) Basophils (%) (Auto) 1 % (0-3) Neutrophils # (Auto) 3.1 x10^3/uL (1.8-7.7) Lymphocytes # (Auto) 1.1 x10^3/uL (1.0-4.8) Monocytes # (Auto) 0.5 x10^3/uL (0.0-1.1) Eosinophils # (Auto) 0.2 x10^3/uL (0.0-0.7) Basophils # (Auto) 0.0 x10^3/uL (0.0-0.2) Sodium Level 143 mmol/L (136-145) Potassium Level 4.3 mmol/L (3.5-5.1) Chloride Level 108 mmol/L (98-107) Carbon Dioxide Level 30 mmol/L (21-32) Anion Gap 5 (6-14) Blood Urea Nitrogen 25 mg/dL (8-26) Creatinine 1.4 mg/dL (0.7-1.3) Estimated GFR (Cockcroft-Gault) 51.4 Glucose Level 84 mg/dL (70-99) Calcium Level 8.5 mg/dL (8.5-10.1) Medications Current Medications Furosemide (Lasix) 40 mg 1X ONCE IVP Last administered on 05/25/20at 19:59; Start 05/25/20 at 19:00; Stop 05/25/20 at 19:01; Status DC Nitroglycerin (Nitro-Bid Oint) 1 inch 1X ONCE TP ; Start 05/25/20 at 19:00; Stop 05/25/20 at 19:01; Status DC Labetalol HCl (Normodyne Iv Push) 20 mg 1X ONCE IVP Last administered on 05/25/20at 19:52; Start 05/25/20 at 19:15; Stop 05/25/20 at 19:16; Status DC Ondansetron HCl (Zofran) 4 mg PRN Q8HRS PRN IV NAUSEA/VOMITING 1ST CHOICE; Start 05/25/20 at 22:00; Stop 05/26/20 at 12:12; Status DC Acetaminophen/ Hydrocodone Bitart (Lortab 7.5/325) 1 tab 1X ONCE PO Last administered on 05/26/20at 00:36; Start 05/26/20 at 00:00; Stop 05/26/20 at 00:01; Status DC Pantoprazole Sodium (Protonix) 40 mg 1X ONCE PO Last administered on 05/26/20at 00:36; Start 05/26/20 at 00:00; Stop 05/26/20 at 00:01; Status DC Carvedilol (Coreg) 3.125 mg 1X ONCE PO Last administered on 05/26/20at 00:37; Start 05/26/20 at 00:00; Stop 05/26/20 at 00:01; Status DC Furosemide (Lasix) 40 mg BID94 IVP Last administered on 05/27/20at 08:41; Start 05/26/20 at 16:00 Carvedilol (Coreg) 3.125 mg BIDWMEALS PO ; Start 05/26/20 at 17:00; Stop 05/26/20 at 10:12; Status DC Potassium Chloride (Klor-Con) 20 meq DAILY PO Last administered on 05/27/20at 08:40; Start 05/26/20 at 10:30 Pantoprazole Sodium (Protonix) 40 mg DAILY07 PO Last administered on 05/27/20at 05:45; Start 05/27/20 at 07:00 Aspirin (Ecotrin) 81 mg DAILYWBKFT PO Last administered on 05/27/20at 08:41; Start 05/26/20 at 10:30 Hydralazine HCl (Apresoline Inj) 10 mg PRN Q4HRS PRN IVP ELEVATED BP, SEE COMMENTS; Start 05/26/20 at 10:15 Isosorbide Mononitrate (Imdur) 30 mg DAILY PO Last administered on 05/27/20at 08:42; Start 05/27/20 at 09:00 Sodium Chloride (Normal Saline Flush) 3 ml QSHIFT PRN IV AFTER MEDS AND BLOOD DRAWS; Start 05/26/20 at 11:30 Ondansetron HCl (Zofran) 4 mg PRN Q4HRS PRN IV NAUSEA/VOMITING; Start 05/26/20 at 11:30 Acetaminophen (Tylenol) 650 mg PRN Q4HRS PRN PO TEMP OVER 100.4F OR MILD PAIN; Start 05/26/20 at 11:30 Al Hydroxide/Mg Hydroxide (Mylanta Plus Xs) 30 ml PRN DAILY PRN PO HEARTBURN / GAS; Start 05/26/20 at 11:30 Sodium Monofluorophosphate (Fleet Adult) 133 ml PRN DAILY PRN WI CONSTIPATION; Start 05/26/20 at 11:30 Docusate Sodium (Colace) 100 mg PRN BID PRN PO HARD STOOLS; Start 05/26/20 at 11:30 Albuterol Sulfate (Ventolin Neb Soln) 2.5 mg PRN Q4HRS PRN NEB SHORTNESS OF BREATH; Start 05/26/20 at 11:30 Guaifenesin (Robitussin) 200 mg PRN Q4HRS PRN PO COUGH; Start 05/26/20 at 11:30 Enoxaparin Sodium (Lovenox 40mg Syringe) 40 mg Q24H SQ Last administered on 05/26/20at 12:28; Start 05/26/20 at 12:00 Allopurinol (Zyloprim) 300 mg DAILY PO Last administered on 05/27/20at 08:37; Start 05/26/20 at 13:00 Acetaminophen/ Hydrocodone Bitart (Lortab 7.5/325) 1 tab TID PO Last administered on 05/27/20at 08:40; Start 05/26/20 at 14:00 Ascorbic Acid (Vitamin C) 500 mg DAILY PO Last administered on 05/27/20at 08:37; Start 05/26/20 at 13:00 Multivitamins (Thera M Plus) 1 tab DAILY PO Last administered on 05/27/20at 08:37; Start 05/26/20 at 13:00 Active Scripts Active Reported Trelegy Ellipta 100-62.5-25 (Fluticasone/Umeclidin/Vilanter) 1 Each Blst.w.dev 1 Puff IH DAILY Vitamin C (Ascorbic Acid) 100 Mg Tablet 1 Tab PO DAILY 30 Days Daily Value (Multivitamin) 1 Each Tablet 1 Tab PO DAILY 30 Days Tylenol (Acetaminophen) 325 Mg Tablet 2 Tab PO PRN Q4HRS Aspirin 325 Mg Tablet 325 Mg PO DAILY Allopurinol 300 Mg Tablet 300 Mg PO DAILY Hydrocodone-Acetamin 7.5-325 (Hydrocodone/Acetaminophen) 1 Each Tablet 1 Each PO TID Robaxin-750 (Methocarbamol) 750 Mg Tablet 750 Mg PO DAILY Losartan Potassium 50 Mg Tablet 50 Mg PO DAILY Coreg (Carvedilol) 3.125 Mg Tablet 3.125 Mg PO BIDWMEALS Omeprazole 20 Mg Tablet.dr 20 Mg PO BID Bumetanide 2 Mg Tablet 2 Mg PO DAILY Potassium Chloride (Potassium Chloride) 20 Meq Tablet.er 20 Meq PO DAILY Vitals/I & O Vital Sign - Last 24 Hours 05/26/20 05/26/20 05/26/20 05/26/20 11:00 13:28 14:28 19:43 Temp 98.1 97.9 98.1 97.9 Pulse 66 73 Resp 18 16 B/P (MAP) 165/71 (102) 134/65 (88) Pulse Ox 95 95 95 93 O2 Delivery Nasal Cannula Room Air Room Air Room Air O2 Flow Rate 2.0 2.0 2.0 05/26/20 05/26/20 05/26/20 05/27/20 19:56 20:46 22:53 03:28 Temp 97.6 98.1 97.6 98.1 Pulse 59 59 Resp 22 16 16 B/P (MAP) 153/80 (104) 141/68 (92) Pulse Ox 95 90 O2 Delivery Nasal Cannula Room Air Nasal Cannula Room Air O2 Flow Rate 2.0 2.0 05/27/20 05/27/20 05/27/20 05/27/20 07:00 08:00 08:40 08:42 Temp 98.1 98.1 Pulse 54 54 Resp 16 B/P (MAP) 153/57 (89) 153/57 Pulse Ox 92 92 O2 Delivery Room Air Room Air Nasal Cannula O2 Flow Rate 2.0 05/27/20 09:40 Pulse Ox 92 O2 Delivery Room Air O2 Flow Rate 2.0 Intake and Output 05/26/20 05/26/20 05/27/20 14:59 22:59 06:59 Intake Total 0 ml 500 ml Output Total 800 ml 800 ml 2700 ml Balance -800 ml -800 ml -2200 ml Justicifation of Admission Dx: Justifications for Admission: Justification of Admission Dx: Yes CHF: Hemodynamic Instability WOODY BRAY MD May 27, 2020 10:28
[2020-05-27 10:33] VITALS: BP 137/71
[2020-05-27] MEDS: traMADol 50 MG TABLET PO PRN (12:27)
[2020-05-27] MEDS: ENOXAPARIN 40 MG/0.4 ML SYRINGE. SQ SCH (12:29)
--- NOTE | 2020-05-27 12:38 | NUR ---
pt given education regarding heart cath. Pt also given tablet to watch with education and consents signed. consents are in the chart.
[2020-05-27 14:42] VITALS: BP 151/76
--- NOTE | 2020-05-27 15:50 | CARD ---
MR#: [id number] Date of Study: 05/26/2020 Ordering Physician: JAZ CODY, Referring Physician: JAZ CODY Tech: Suzan Robertson [facility] [[email or web address]] APPROVED REPORT EXAM: Two-dimensional and M-mode echocardiogram with Doppler and color Doppler. Other Information Quality : FairHR: 60bpm Rhythm : NSR INDICATION Congestive Heart Failure RISK FACTORS Hypertension Obesity Hyperlipidemia 2D DIMENSIONS RVDd3.9 (2.9-3.5cm)Left Atrium(2D)3.5 (1.6-4.0cm) IVSd1.5 (0.7-1.1cm)Aortic Root(2D)4.1 (2.0-3.7cm) LVDd5.7 (3.9-5.9cm)LVOT Diameter2.6 (1.8-2.4cm) PWd1.3 (0.7-1.1cm)LVDs3.2 (2.5-4.0cm) FS (%) 42.9 %SV115.9 ml LVEF(%)73.3 (>50%) Aortic Valve AoV Peak Alexis.162.4cm/sAoV VTI36.1cm AO Peak GR.10.6mmHgLVOT Peak Alexis.107.5cm/s AO Mean GR.5mmHgAVA (VMAX)3.38cm2 Mitral Valve MV E Lbnpmbpi15.0cm/sMV DECEL HPXK182te MV A Djeeywnc65.3cm/sE/A Ratio1.2 Pulmonary Valve PV Peak Skzwxavt928.1cm/s LEFT VENTRICLE The left ventricle is normal size. There is mild concentric left ventricular hypertrophy. The left ve ntricular systolic function is normal. The ejection fraction is estimated at 55%. There is normal LV segmental wall motion. Transmitral Doppler flow pattern is Grade II-pseudonormal filling dynamics. RIGHT VENTRICLE The right ventricle is normal size. There is normal right ventricular wall thickness. The right ventr icular systolic function is normal. ATRIA The left atrium size is normal. The right atrium is mildly dilated. The interatrial septum is intact with no evidence for an atrial septal defect or patent foramen ovale as noted on 2-D or Doppler imagi ng. AORTIC VALVE The aortic valve is normal in structure and function. Doppler and Color Flow revealed no significant aortic regurgitation. There is no significant aortic valvular stenosis. MITRAL VALVE The mitral valve is normal in structure and function. There is no evidence of mitral valve prolapse. There is no mitral valve stenosis. Doppler and Color Flow revealed no mitral valve regurgitation note d. TRICUSPID VALVE The tricuspid valve is normal in structure and function. Doppler and Color Flow revealed trace tricus pid regurgitation. There is no tricuspid valve stenosis. PULMONIC VALVE The pulmonary valve is normal in structure and function. Doppler and Color Flow revealed no pulmonic valvular regurgitation. GREAT VESSELS The aortic root is mildly enlarged. The ascending aorta is Mildly dilated. The IVC is normal in size and collapses >50% with inspiration. PERICARDIAL EFFUSION There is no evidence of significant pericardial effusion. Critical Notification Critical Value: No <Conclusion> The left ventricular systolic function is normal. The ejection fraction is estimated at 55%. There is normal LV segmental wall motion. Transmitral Doppler flow pattern is Grade II-pseudonormal filling dynamics. Trace tricuspid regurgitation. There is no evidence of significant pericardial effusion. Signed by : Rocky Lucero, Electronically Approved : 05/27/2020 15:50:37
--- NOTE | 2020-05-27 17:21 | PDOC ---
PROGRESS NOTES Date of Service: DATE: 05/27/20 TIME: 17:21 Subjective Subjective Dyspnea improved, denied any CP, continues to complain of edema Objective Objective Vital Signs Date Time Temp Pulse Resp B/P (MAP) Pulse Ox O2 Delivery O2 Flow Rate FiO2 05/27/20 15:19 95 Room Air 2.0 05/27/20 14:42 97.6 16 151/76 (101) 97.6 05/27/20 10:33 52 Intake and Output 05/27/20 07:00 Intake Total 500 ml Output Total 4300 ml Balance -3800 ml Intake Oral 500 ml Output Urine Total 4300 ml Physical Exam Abdomen: Soft, No tenderness, Other (very obese) Heart: Regular rate (SR with PACs), Normal S1, Other (distant heart spounds) Extremities: No cyanosis, Other (2-3+ edema) General: Alert, Oriented X3, Cooperative HEENT: Atraumatic, EOMI, Mucous membr. moist/pink Lungs: Other (diminished) Neuro: Normal speech Psych/Mental Status: Mental status NL Skin: No breakdown Assessment Assessment 1. Chest pain: NV ruled out. Plan ischemic evaluation possibly with cardiac cath on friday 2. Acute on chronic diastolic HF. Improving with diuresis. 2D echo showed normal LVF 3. HTN: better controlled 4. Hx of DM2 and HLP: resolved after >300# wt loss from gastric bypass 5. 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 COPD: stable Plan Plan of Care Problems Medical Problems: (1) Congestive heart failure Status: Acute (2) Hypertension Status: Acute (3) Shortness of breath Status: Acute Comment Review of Relevant I have reviewed the following items pauol (where applicable) has been applied. Labs Laboratory Tests Test 05/27/20 06:20 White Blood Count 4.8 x10^3/uL (4.0-11.0) Red Blood Count 3.71 x10^6/uL (4.30-5.70) Hemoglobin 12.0 g/dL (13.0-17.5) Hematocrit 35.6 % (39.0-53.0) Mean Corpuscular Volume 96 fL (79-100) Mean Corpuscular Hemoglobin 32 pg (25-35) Mean Corpuscular Hemoglobin Concent 34 g/dL (31-37) Red Cell Distribution Width 13.9 % (11.5-14.5) Platelet Count 192 x10^3/uL (140-400) Neutrophils (%) (Auto) 64 % (31-73) Lymphocytes (%) (Auto) 22 % (24-48) Monocytes (%) (Auto) 10 % (0-9) Eosinophils (%) (Auto) 4 % (0-3) Basophils (%) (Auto) 1 % (0-3) Neutrophils # (Auto) 3.1 x10^3/uL (1.8-7.7) Lymphocytes # (Auto) 1.1 x10^3/uL (1.0-4.8) Monocytes # (Auto) 0.5 x10^3/uL (0.0-1.1) Eosinophils # (Auto) 0.2 x10^3/uL (0.0-0.7) Basophils # (Auto) 0.0 x10^3/uL (0.0-0.2) D-Dimer (Carey) 0.82 ug/mlFEU (0.00-0.50) Sodium Level 143 mmol/L (136-145) Potassium Level 4.3 mmol/L (3.5-5.1) Chloride Level 108 mmol/L (98-107) Carbon Dioxide Level 30 mmol/L (21-32) Anion Gap 5 (6-14) Blood Urea Nitrogen 25 mg/dL (8-26) Creatinine 1.4 mg/dL (0.7-1.3) Estimated GFR (Cockcroft-Gault) 51.4 Glucose Level 84 mg/dL (70-99) Calcium Level 8.5 mg/dL (8.5-10.1) Medications Current Medications Diclofenac Sodium (Voltaren) 1 jolie BID TP ; Start 05/27/20 at 21:00 Isosorbide Mononitrate (Imdur) 30 mg DAILY PO Last administered on 05/27/20at 08:42; Start 05/27/20 at 09:00 Pantoprazole Sodium (Protonix) 40 mg DAILY07 PO Last administered on 05/27/20at 05:45; Start 05/27/20 at 07:00 Tramadol HCl (Ultram) 50 mg PRN Q8HRS PRN PO MODERATE-SEVERE PAIN Last ad ministered on 05/27/20at 12:27; Start 05/27/20 at 12:15 Vitals/I & O Vital Sign - Last 24 Hours 05/26/20 05/26/20 05/26/20 05/26/20 19:43 19:56 20:46 22:53 Temp 97.9 97.6 97.9 97.6 Pulse 73 59 Resp 16 22 16 B/P (MAP) 134/65 (88) 153/80 (104) Pulse Ox 93 95 O2 Delivery Room Air Nasal Cannula Room Air Nasal Cannula O2 Flow Rate 2.0 2.0 05/27/20 05/27/20 05/27/20 05/27/20 03:28 07:00 08:00 08:40 Temp 98.1 98.1 98.1 98.1 Pulse 59 54 Resp 16 16 B/P (MAP) 141/68 (92) 153/57 (89) Pulse Ox 90 92 92 O2 Delivery Room Air Room Air Room Air Nasal Cannula O2 Flow Rate 2.0 05/27/20 05/27/20 05/27/20 05/27/20 08:42 09:40 10:33 12:27 Temp 97.7 97.7 Pulse 54 52 Resp 16 B/P (MAP) 153/57 137/71 (93) Pulse Ox 92 95 95 O2 Delivery Room Air Room Air Room Air O2 Flow Rate 2.0 05/27/20 05/27/20 05/27/20 05/27/20 13:27 14:19 14:42 15:19 Temp 97.6 97.6 Resp 16 B/P (MAP) 151/76 (101) Pulse Ox 95 95 95 95 O2 Delivery Room Air Room Air Room Air Room Air O2 Flow Rate 2.0 Intake and Output 05/26/20 05/26/20 05/27/20 15:00 23:00 07:00 Intake Total 0 ml 500 ml Output Total 800 ml 800 ml 2700 ml Balance -800 ml -800 ml -2200 ml POLO AMOR MD May 27, 2020 17:21
[2020-05-27 19:49] VITALS: BP 148/80
--- NOTE | 2020-05-27 20:37 | RAD ---
Perfusion lung scan Clinical history: shortness of breath COMPARISON: Chest x-rays of 05/25/2020 and 05/27/2020. Technique: 5.5 mCi of Tc 99m MAA was administered intravenously and spot views were obtained the gamm a camera for a nuclear medicine perfusion examination. Static images were reviewed as a Q scan in [facility] region to exclude pulmonary embolism. Findings: Perfusion images show evidence of an enlarged heart and prominence of the central pulmonary vasculat ure. There is relative foot. In the left hemithorax that does not follow a segmental anatomic distrib ution and likely reflects artifact of chest wall soft tissue overlap. This is very low probability for pulmonary embolism based on the modified PIOPED criteria. Impression: very low probability for pulmonary embolism. EXAM: XR CHEST 1V INDICATION: Reason: CHF/POST LUNG SCAN / Spl. Instructions: / History: . TECHNIQUE: Single view COMPARISON: Chest x-ray of 05/25/2020 FINDINGS: The heart size is mildly enlarged.. The great vessels appear unremarkable. There is no hilar or mediastinal mass. Lungs show central pulmonary vascular congestion. No focal infiltrates. There is no pleural effusion or pneumothorax. There are no significant osseous abnormalities. IMPRESSION: Mild cardiomegaly and central pulmonary vascular congestion. Electronically signed by: Ronal Mcdaniel MD (05/27/2020 8:35 PM) [facility] [place]
--- NOTE | 2020-05-27 20:37 | RAD ---
Perfusion lung scan Clinical history: shortness of breath COMPARISON: Chest x-rays of 05/25/2020 and 05/27/2020. Technique: 5.5 mCi of Tc 99m MAA was administered intravenously and spot views were obtained the gamm a camera for a nuclear medicine perfusion examination. Static images were reviewed as a Q scan in [facility] to exclude pulmonary embolism. Findings: Perfusion images show evidence of an enlarged heart and prominence of the central pulmonary vasculat ure. There is relative foot. In the left hemithorax that does not follow a segmental anatomic distrib ution and likely reflects artifact of chest wall soft tissue overlap. This is very low probability for pulmonary embolism based on the modified PIOPED criteria. Impression: very low probability for pulmonary embolism. EXAM: XR CHEST 1V INDICATION: Reason: CHF/POST LUNG SCAN / Spl. Instructions: / History: . TECHNIQUE: Single view COMPARISON: Chest x-ray of 05/25/2020 FINDINGS: The heart size is mildly enlarged.. The great vessels appear unremarkable. There is no hilar or mediastinal mass. Lungs show central pulmonary vascular congestion. No focal infiltrates. There is no pleural effusion or pneumothorax. There are no significant osseous abnormalities. IMPRESSION: Mild cardiomegaly and central pulmonary vascular congestion. Electronically signed by: Ronal Mcdaniel MD (05/27/2020 8:35 PM) [facility] [place]
[2020-05-27] MEDS: DICLOFENAC SODIUM 1% TOPICAL GEL 100GM TUBE. TP SCH (21:10)
[2020-05-27 22:39] VITALS: BP 140/52
[2020-05-28 03:00] VITALS: BP 145/78
[2020-05-28 07:00] VITALS: BP 152/71
[2020-05-28] MEDS: MULTIVITAMIN with MINERAL TABLET. PO SCH (08:23)
[2020-05-28] MEDS: ISOSORBIDE MONONITRATE ER 30 MG TAB.ER.24H PO SCH (08:23)
[2020-05-28] MEDS: ASCORBIC ACID 500 MG TABLET PO SCH (08:23)
[2020-05-28] MEDS: FUROSEMIDE 40 MG/4 ML VIAL. IVP SCH ×2 (08:25→15:14)
[2020-05-28] MEDS: HYDROcodone/APAP 7.5/325MG 1 TAB TABLET PO SCH ×3 (08:25→20:47)
[2020-05-28] MEDS: PANTOPRAZOLE 40 MG TABLET.DR. PO SCH (08:25)
[2020-05-28] MEDS: ALLOPURINOL 300 MG TABLET. PO SCH (08:25)
[2020-05-28] MEDS: ASPIRIN ENTERIC COATED 81 MG TABLET.DR. PO SCH (08:25)
[2020-05-28] MEDS: POTASSIUM CHLORIDE 20 MEQ TABLET.ER. PO SCH (08:26)
[2020-05-28 08:41] LABS: CALCIUM 8.2 mg/dL (8.5-10.1); CREATININE 1.5 mg/dL (0.7-1.3); GFR 47.4; POTASSIUM 4.3 mmol/L (3.5-5.1)
[2020-05-28] MEDS: DICLOFENAC SODIUM 1% TOPICAL GEL 100GM TUBE. TP SCH ×2 (09:03→20:46)
--- NOTE | 2020-05-28 10:19 | PDOC ---
PROGRESS NOTES Date of Service: DATE: 05/28/20 TIME: 10:19 Chief Complaint Chief Complaint ASSESSMENT: This is a 60-year-old male with' 1. History of heart failure, likely diastolic dysfunction with a 20-pound weight gain in 2 weeks. 2. Peripheral edema. 3. Chest pain, probable esophageal reflux disease. Troponin negative x 5. 4. Extreme morbid obesity. 5. Diabetes. 6. History of gastric bypass on exam. 7. Hypertension. 8. Chronic obstructive pulmonary disease, stable. 9. Right sided bakers cyst measuring 4.6 x 3.9 x 2.3 cm. PLAN: 1. Aggressive diuresis. Cardiology is planning a right and left heart catheterization on Friday.05-29 COVID-19 PCR. transthoracic echocardiogram venous dopplers to rule out deep venous thrombosis. 2. IV Lasix. 3. dvt prophylaxis 4. weight loss encouraged 5. Continue PPI for GERD and aspirin. very low probability for pulmonary embolism. Imdur, IV hydralazine p.r.n. for blood pressure control. outpatient sleep apnea study. I discussed the patient's care with nurse on the floor. ortho can see as out pt for kenndey's cyst Anticipate length of stay 4-5 days. Chest x-ray shows interstitial infiltrate, probably consistent with mild pulmonary edema. Total time spent with the patient's exam, chart review was 27 minutes. Greater than 50% of time was spent with the patient's exam, chart review, the patient care, coordination and consultation. History of Present Illness History of Present Illness HISTORY OF PRESENT ILLNESS: pleasant 60-year-old male from [place], [place]. 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 He states he has been more short of breath and he has had chest discomfort especially with exertion for the last 10-14 days. Denies fever or chills. Denies orthopnea. No nausea or vomiting. No evidence of swelling in his ankles. States he drinks three cups of coffee a day and a large container of water a day. He is a remote smoker, but does not use supplemental oxygen. States that he has diabetes and lost 300 lbs from his gastric bypass 11 years prior. Denies any recent falls or injury. 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 CURRENT MEDICATIONS: Please see medication reconciliation. PAST MEDICAL HISTORY: Significant for hypertension, hyperlipidemia, COPD, esophageal reflux disease, osteoarthritis, gout, diabetes, , Pushpa-en-Y bypass in 2010. FAMILY HISTORY: Positive for obesity. 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 Denies alcohol use. Denies drug use. [place]. CURRENT MEDICATIONS: Please see medication reconciliation. ALLERGIES: He has no known drug allergies. REVIEW OF SYSTEMS: A 14-point review of systems was otherwise negative except for swelling in the ankles. Denies nausea or vomiting. Denies focal weakness chest tightness has improved. Vitals Vitals Vital Signs Date Time Temp Pulse Resp B/P (MAP) Pulse Ox O2 Delivery O2 Flow Rate FiO2 05/28/20 08:25 22 Nasal Cannula 2.0 05/28/20 08:23 69 152/71 05/28/20 07:00 97.9 88 97.9 Physical Exam General: Alert, Oriented X3, Cooperative, No acute distress Heart: Regular rate (SR with PACs), Normal S1, Other (distant heart spounds) Lungs: Clear, Other (diminished) Abdomen: Normal bowel sounds, Soft, No tenderness, Other (very obese) Extremities: No clubbing, No cyanosis, Other (2-3+ edema) Skin: No breakdown Labs LABS EXAM: XR CHEST 1V INDICATION: Reason: CHF/POST LUNG SCAN / Spl. Instructions: / History: . TECHNIQUE: Single view COMPARISON: Chest x-ray of 05/25/2020 FINDINGS: The heart size is mildly enlarged.. The great vessels appear unremarkable. There is no hilar or mediastinal mass. Lungs show central pulmonary vascular congestion. No focal infiltrates. There is no pleural effusion or pneumothorax. There are no significant osseous abnormalities. IMPRESSION: Mild cardiomegaly and central pulmonary vascular congestion. Electronically signed by: Ronal Mcdaniel MD (05/27/2020 8:35 PM) [facility] [place] Clinical history: shortness of breath COMPARISON: Chest x-rays of 05/25/2020 and 05/27/2020. Technique: 5.5 mCi of Tc 99m MAA was administered intravenously and spot views were obtained the gamma camera for a nuclear medicine perfusion examination. Static images were reviewed as a Q scan in order to exclude pulmonary embolism. Findings: Perfusion images show evidence of an enlarged heart and prominence of the central pulmonary vasculature. There is relative foot. In the left hemithorax that does not follow a segmental anatomic distribution and likely reflects artifact of chest wall soft tissue overlap. This is very low probability for pulmonary embolism based on the modified PIOPED criteria. Impression: very low probability for pulmonary embolism. EXAM: XR CHEST 1V INDICATION: Reason: CHF/POST LUNG SCAN / Spl. Instructions: / History: . TECHNIQUE: Single view COMPARISON: Chest x-ray of 05/25/2020 Laboratory Tests Test 05/28/20 07:45 Sodium Level 140 mmol/L (136-145) Potassium Level 4.3 mmol/L (3.5-5.1) Chloride Level 107 mmol/L (98-107) Carbon Dioxide Level 31 mmol/L (21-32) Anion Gap 2 (6-14) Blood Urea Nitrogen 25 mg/dL (8-26) Creatinine 1.5 mg/dL (0.7-1.3) Estimated GFR (Cockcroft-Gault) 47.4 Glucose Level 86 mg/dL (70-99) Calcium Level 8.2 mg/dL (8.5-10.1) Assessment and Plan Assessmemt and Plan Problems Medical Problems: (1) Congestive heart failure Status: Acute (2) Hypertension Status: Acute (3) Shortness of breath Status: Acute Comment Review of Relevant I have reviewed the following items paulo (where applicable) has been applied. Labs Laboratory Tests Test 05/26/20 13:05 05/26/20 17:02 05/27/20 06:20 05/28/20 07:45 Urine Collection Type Unknown Urine Color Yellow Urine Clarity Clear Urine pH 6.5 (<5.0-8.0) Urine Specific [facility] 1.015 (1.000-1.030) Urine Protein >=300 mg/dL (NEG-TRACE) Urine Glucose (UA) Negative mg/dL (NEG) Urine Ketones (Stick) Negative mg/dL (NEG) Urine Blood Negative (NEG) Urine Nitrite Negative (NEG) Urine Bilirubin Negative (NEG) Urine Urobilinogen Dipstick 1.0 mg/dL (0.2 mg/dL) Urine Leukocyte Esterase Negative (NEG) Urine RBC 1-2 /HPF (0-2) Urine WBC Occ /HPF (0-4) Urine Squamous Epithelial Cells Few /LPF Urine Bacteria 0 /HPF (0-FEW) Urine Hyaline Casts Few /HPF Coronavirus (PCR) Not detected (Not Detected) SARS-CoV-2 Antigen (Rapid) Negative (NEGATIVE) White Blood Count 4.8 x10^3/uL (4.0-11.0) Red Blood Count 3.71 x10^6/uL (4.30-5.70) Hemoglobin 12.0 g/dL (13.0-17.5) Hematocrit 35.6 % (39.0-53.0) Mean Corpuscular Volume 96 fL (79-100) Mean Corpuscular Hemoglobin 32 pg (25-35) Mean Corpuscular Hemoglobin Concent 34 g/dL (31-37) Red Cell Distribution Width 13.9 % (11.5-14.5) Platelet Count 192 x10^3/uL (140-400) Neutrophils (%) (Auto) 64 % (31-73) Lymphocytes (%) (Auto) 22 % (24-48) Monocytes (%) (Auto) 10 % (0-9) Eosinophils (%) (Auto) 4 % (0-3) Basophils (%) (Auto) 1 % (0-3) Neutrophils # (Auto) 3.1 x10^3/uL (1.8-7.7) Lymphocytes # (Auto) 1.1 x10^3/uL (1.0-4.8) Monocytes # (Auto) 0.5 x10^3/uL (0.0-1.1) Eosinophils # (Auto) 0.2 x10^3/uL (0.0-0.7) Basophils # (Auto) 0.0 x10^3/uL (0.0-0.2) D-Dimer (Carey) 0.82 ug/mlFEU (0.00-0.50) Sodium Level 143 mmol/L (136-145) 140 mmol/L (136-145) Potassium Level 4.3 mmol/L (3.5-5.1) 4.3 mmol/L (3.5-5.1) Chloride Level 108 mmol/L (98-107) 107 mmol/L (98-107) Carbon Dioxide Level 30 mmol/L (21-32) 31 mmol/L (21-32) Anion Gap 5 (6-14) 2 (6-14) Blood Urea Nitrogen 25 mg/dL (8-26) 25 mg/dL (8-26) Creatinine 1.4 mg/dL (0.7-1.3) 1.5 mg/dL (0.7-1.3) Estimated GFR (Cockcroft-Gault) 51.4 47.4 Glucose Level 84 mg/dL (70-99) 86 mg/dL (70-99) Calcium Level 8.5 mg/dL (8.5-10.1) 8.2 mg/dL (8.5-10.1) Laboratory Tests Test 05/28/20 07:45 Sodium Level 140 mmol/L (136-145) Potassium Level 4.3 mmol/L (3.5-5.1) Chloride Level 107 mmol/L (98-107) Carbon Dioxide Level 31 mmol/L (21-32) Anion Gap 2 (6-14) Blood Urea Nitrogen 25 mg/dL (8-26) Creatinine 1.5 mg/dL (0.7-1.3) Estimated GFR (Cockcroft-Gault) 47.4 Glucose Level 86 mg/dL (70-99) Calcium Level 8.2 mg/dL (8.5-10.1) Medications Current Medications Furosemide (Lasix) 40 mg 1X ONCE IVP Last administered on 05/25/20at 19:59; Start 05/25/20 at 19:00; Stop 05/25/20 at 19:01; Status DC Nitroglycerin (Nitro-Bid Oint) 1 inch 1X ONCE TP ; Start 05/25/20 at 19:00; Stop 05/25/20 at 19:01; Status DC Labetalol HCl (Normodyne Iv Push) 20 mg 1X ONCE IVP Last administered on 05/25/20at 19:52; Start 05/25/20 at 19:15; Stop 05/25/20 at 19:16; Status DC Ondansetron HCl (Zofran) 4 mg PRN Q8HRS PRN IV NAUSEA/VOMITING 1ST CHOICE; Start 05/25/20 at 22:00; Stop 05/26/20 at 12:12; Status DC Acetaminophen/ Hydrocodone Bitart (Lortab 7.5/325) 1 tab 1X ONCE PO Last administered on 05/26/20at 00:36; Start 05/26/20 at 00:00; Stop 05/26/20 at 00:01; Status DC Pantoprazole Sodium (Protonix) 40 mg 1X ONCE PO Last administered on 05/26/20at 00:36; Start 05/26/20 at 00:00; Stop 05/26/20 at 00:01; Status DC Carvedilol (Coreg) 3.125 mg 1X ONCE PO Last administered on 05/26/20at 00:37; Start 05/26/20 at 00:00; Stop 05/26/20 at 00:01; Status DC Furosemide (Lasix) 40 mg BID94 IVP Last administered on 05/28/20at 08:25; Start 05/26/20 at 16:00 Carvedilol (Coreg) 3.125 mg BIDWMEALS PO ; Start 05/26/20 at 17:00; Stop 05/26/20 at 10:12; Status DC Potassium Chloride (Klor-Con) 20 meq DAILY PO Last administered on 05/28/20at 08:26; Start 05/26/20 at 10:30 Pantoprazole Sodium (Protonix) 40 mg DAILY07 PO Last administered on 05/28/20at 08:25; Start 05/27/20 at 07:00 Aspirin (Ecotrin) 81 mg DAILYWBKFT PO Last administered on 05/28/20at 08:25; Start 05/26/20 at 10:30 Hydralazine HCl (Apresoline Inj) 10 mg PRN Q4HRS PRN IVP ELEVATED BP, SEE COMMENTS; Start 05/26/20 at 10:15 Isosorbide Mononitrate (Imdur) 30 mg DAILY PO Last administered on 05/28/20at 08:23; Start 05/27/20 at 09:00 Sodium Chloride (Normal Saline Flush) 3 ml QSHIFT PRN IV AFTER MEDS AND BLOOD DRAWS; Start 05/26/20 at 11:30 Ondansetron HCl (Zofran) 4 mg PRN Q4HRS PRN IV NAUSEA/VOMITING; Start 05/26/20 at 11:30 Acetaminophen (Tylenol) 650 mg PRN Q4HRS PRN PO TEMP OVER 100.4F OR MILD PAIN; Start 05/26/20 at 11:30 Al Hydroxide/Mg Hydroxide (Mylanta Plus Xs) 30 ml PRN DAILY PRN PO HEARTBURN / GAS; Start 05/26/20 at 11:30 Sodium Monofluorophosphate (Fleet Adult) 133 ml PRN DAILY PRN ID CONSTIPATION; Start 05/26/20 at 11:30 Docusate Sodium (Colace) 100 mg PRN BID PRN PO HARD STOOLS; Start 05/26/20 at 11:30 Albuterol Sulfate (Ventolin Neb Soln) 2.5 mg PRN Q4HRS PRN NEB SHORTNESS OF BREATH; Start 05/26/20 at 11:30 Guaifenesin (Robitussin) 200 mg PRN Q4HRS PRN PO COUGH; Start 05/26/20 at 11:30 Enoxaparin Sodium (Lovenox 40mg Syringe) 40 mg Q24H SQ Last administered on 05/27/20at 12:29; Start 05/26/20 at 12:00; Stop 05/28/20 at 10:08; Status DC Allopurinol (Zyloprim) 300 mg DAILY PO Last administered on 05/28/20at 08:25; Start 05/26/20 at 13:00 Acetaminophen/ Hydrocodone Bitart (Lortab 7.5/325) 1 tab TID PO Last administered on 05/28/20at 08:25; Start 05/26/20 at 14:00 Ascorbic Acid (Vitamin C) 500 mg DAILY PO Last administered on 05/28/20at 08:23; Start 05/26/20 at 13:00 Multivitamins (Thera M Plus) 1 tab DAILY PO Last administered on 05/28/20at 08:23; Start 05/26/20 at 13:00 Tramadol HCl (Ultram) 50 mg PRN Q8HRS PRN PO MODERATE-SEVERE PAIN Last administered on 05/27/20at 12:27; Start 05/27/20 at 12:15 Diclofenac Sodium (Voltaren) 1 jolie BID TP Last administered on 05/28/20at 09:03; Start 05/27/20 at 21:00 Enoxaparin Sodium (Lovenox 60mg Syringe) 60 mg Q12HR SQ ; Start 05/28/20 at 11:00 Active Scripts Active Reported Trelegy Ellipta 100-62.5-25 (Fluticasone/Umeclidin/Vilanter) 1 Each Blst.w.dev 1 Puff IH DAILY Vitamin C (Ascorbic Acid) 100 Mg Tablet 1 Tab PO DAILY 30 Days Daily Value (Multivitamin) 1 Each Tablet 1 Tab PO DAILY 30 Days Tylenol (Acetaminophen) 325 Mg Tablet 2 Tab PO PRN Q4HRS Aspirin 325 Mg Tablet 325 Mg PO DAILY Allopurinol 300 Mg Tablet 300 Mg PO DAILY Hydrocodone-Acetamin 7.5-325 (Hydrocodone/Acetaminophen) 1 Each Tablet 1 Each PO TID Robaxin-750 (Methocarbamol) 750 Mg Tablet 750 Mg PO DAILY Losartan Potassium 50 Mg Tablet 50 Mg PO DAILY Coreg (Carvedilol) 3.125 Mg Tablet 3.125 Mg PO BIDWMEALS Omeprazole 20 Mg Tablet.dr 20 Mg PO BID Bumetanide 2 Mg Tablet 2 Mg PO DAILY Potassium Chloride (Potassium Chloride) 20 Meq Tablet.er 20 Meq PO DAILY Vitals/I & O Vital Sign - Last 24 Hours 05/27/20 05/27/20 05/27/20 05/27/20 10:33 12:27 13:27 14:19 Temp 97.7 97.7 Pulse 52 Resp 16 B/P (MAP) 137/71 (93) Pulse Ox 95 95 95 95 O2 Delivery Room Air Room Air Room Air Room Air 05/27/20 05/27/20 05/27/20 05/27/20 14:42 15:19 19:49 20:20 Temp 97.6 97.8 97.6 97.8 Pulse 57 Resp 16 16 B/P (MAP) 151/76 (101) 148/80 (102) Pulse Ox 95 95 93 O2 Delivery Room Air Room Air Room Air Room Air O2 Flow Rate 2.0 05/27/20 05/27/20 05/27/20 05/28/20 21:11 22:19 22:39 03:00 Temp 98.0 97.8 98.0 97.8 Pulse 58 62 Resp 18 18 16 16 B/P (MAP) 140/52 (81) 145/78 (100) Pulse Ox 91 95 O2 Delivery Room Air Room Air Room Air Room Air 05/28/20 05/28/20 05/28/20 05/28/20 07:00 08:00 08:23 08:25 Temp 97.9 97.9 Pulse 69 69 Resp 16 22 B/P (MAP) 152/71 (98) 152/71 Pulse Ox 88 O2 Delivery Room Air Room Air Nasal Cannula O2 Flow Rate 2.0 Intake and Output 05/27/20 05/27/20 05/28/20 15:00 23:00 07:00 Intake Total 1040 ml 970 ml Output Total 1975 ml 300 ml 3025 ml Balance -935 ml -300 ml -2055 ml Justicifation of Admission Dx: Justifications for Admission: Justification of Admission Dx: Yes CHF: Hemodynamic Instability WOODY BRAY MD May 28, 2020 10:19
[2020-05-28 10:47] VITALS: BP 158/73
--- NOTE | 2020-05-28 12:15 | PDOC ---
PROGRESS NOTES Date of Service: DATE: 05/28/20 TIME: 12:13 Subjective Subjective Dyspnea and edema improved. Denied any chest pain. Objective Objective Vital Signs Date Time Temp Pulse Resp B/P (MAP) Pulse Ox O2 Delivery O2 Flow Rate FiO2 05/28/20 10:47 97.6 53 16 158/73 (101) 97 Room Air 97.6 05/28/20 10:37 2.0 Intake and Output 05/28/20 07:00 Intake Total 2010 ml Output Total 5300 ml Balance -3290 ml Intake Oral 2010 ml Output Urine Total 5300 ml # Bowel Movements 1 Physical Exam Abdomen: Normal bowel sounds, Soft, No tenderness, Other (very obese) Heart: Regular rate (SR with PACs), Normal S1, Other (distant heart spounds) Extremities: No clubbing, No cyanosis, Other (1-2+ edema) General: Alert, Oriented X3, Cooperative, No acute distress HEENT: Atraumatic, EOMI, Mucous membr. moist/pink Lungs: Other (diminished) Neuro: Normal speech Psych/Mental Status: Mental status NL Skin: No breakdown Assessment Assessment 1. Chest pain: [place] ruled out. Plan ischemic evaluation possibly with cardiac cath on friday 2. Acute on chronic diastolic HF. Improving with diuresis. 2D echo showed normal LVF 3. HTN: better controlled but slightly elevated. Resume Coreg. 4. Hx of DM2 and HLP: resolved after >300# wt loss from gastric bypass 5. 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 COPD: stable Plan Plan of Care Problems Medical Problems: (1) Congestive heart failure Status: Acute (2) Hypertension Status: Acute (3) Shortness of breath Status: Acute Comment Review of Relevant I have reviewed the following items paulo (where applicable) has been applied. Labs Laboratory Tests Test 05/28/20 07:45 Sodium Level 140 mmol/L (136-145) Potassium Level 4.3 mmol/L (3.5-5.1) Chloride Level 107 mmol/L (98-107) Carbon Dioxide Level 31 mmol/L (21-32) Anion Gap 2 (6-14) Blood Urea Nitrogen 25 mg/dL (8-26) Creatinine 1.5 mg/dL (0.7-1.3) Estimated GFR (Cockcroft-Gault) 47.4 Glucose Level 86 mg/dL (70-99) Calcium Level 8.2 mg/dL (8.5-10.1) Medications Current Medications Diclofenac Sodium (Voltaren) 1 jolie BID TP Last administered on 05/28/20at 09:03; Start 05/27/20 at 21:00 Enoxaparin Sodium (Lovenox 60mg Syringe) 60 mg Q12HR SQ Last administered on 05/28/20at 11:00; Start 05/28/20 at 11:00 Tramadol HCl (Ultram) 50 mg PRN Q8HRS PRN PO MODERATE-SEVERE PAIN Last administered on 05/27/20at 12:27; Start 05/27/20 at 12:15 Vitals/I & O Vital Sign - Last 24 Hours 05/27/20 05/27/20 05/27/20 05/27/20 12:27 13:27 14:19 14:42 Temp 97.6 97.6 Resp 16 B/P (MAP) 151/76 (101) Pulse Ox 95 95 95 95 O2 Delivery Room Air Room Air Room Air Room Air 05/27/20 05/27/20 05/27/20 05/27/20 15:19 19:49 20:20 21:11 Temp 97.8 97.8 Pulse 57 Resp 16 18 B/P (MAP) 148/80 (102) Pulse Ox 95 93 O2 Delivery Room Air Room Air Room Air Room Air O2 Flow Rate 2.0 05/27/20 05/27/20 05/28/20 05/28/20 22:19 22:39 03:00 07:00 Temp 98.0 97.8 97.9 98.0 97.8 97.9 Pulse 58 62 69 Resp 18 16 16 16 B/P (MAP) 140/52 (81) 145/78 (100) 152/71 (98) Pulse Ox 91 95 88 O2 Delivery Room Air Room Air Room Air Room Air 05/28/20 05/28/20 05/28/20 05/28/20 08:00 08:23 08:25 10:37 Pulse 69 Resp 22 B/P (MAP) 152/71 Pulse Ox 88 O2 Delivery Room Air Nasal Cannula Room Air O2 Flow Rate 2.0 2.0 05/28/20 10:47 Temp 97.6 97.6 Pulse 53 Resp 16 B/P (MAP) 158/73 (101) Pulse Ox 97 O2 Delivery Room Air Intake and Output 05/27/20 05/27/20 05/28/20 15:00 23:00 07:00 Intake Total 1040 ml 970 ml Output Total 1975 ml 300 ml 3025 ml Balance -935 ml -300 ml -2055 ml POLO AMOR MD May 28, 2020 12:15
[2020-05-28 14:51] VITALS: BP 156/73
[2020-05-28] MEDS: CARVEDILOL 3.125 MG TABLET. PO SCH (17:15)
--- NOTE | 2020-05-28 17:50 | NUR ---
pt reported dark stool this shift. pt stated that he had used pepto bismol multiple times prior to admission. pt instructed to call for staff to observe next bm.
[2020-05-28 19:11] VITALS: BP 128/61
[2020-05-28 23:19] VITALS: BP 154/61
[2020-05-29] VITALS (13 sets, daily range): BP systolic 133–174; BP diastolic 64–100
[2020-05-29 07:31] LABS: BASO % 1 % (0-3); EOS # 0.2 x10^3/uL (0.0-0.7); EOS % 3 % (0-3); HEMATOCRIT 37.5 % (39.0-53.0); HEMOGLOBIN 12.4 g/dL (13.0-17.5); LYMPH # 0.9 x10^3/uL (1.0-4.8); LYMPH % 15 % (24-48); MEAN CORPUSCULAR HEMOGLOBIN 32 pg (25-35); MEAN CORPUSCULAR HGB CONC 33 g/dL (31-37); MEAN CORPUSCULAR VOLUME 96 fL (79-100); MONO # 0.6 x10^3/uL (0.0-1.1); MONO % 10 % (0-9); NEUT # 4.4 x10^3/uL (1.8-7.7); NEUT % 72 % (31-73); PLATELET COUNT 217 x10^3/uL (140-400); RED BLOOD COUNT 3.91 x10^6/uL (4.30-5.70); RED CELL DISTRIBUTION WIDTH 13.8 % (11.5-14.5); WHITE BLOOD COUNT 6.1 x10^3/uL (4.0-11.0)
[2020-05-29 07:54] LABS: ALBUMIN 2.7 g/dL (3.4-5.0); ALBUMIN/GLOBULIN RATIO 0.8 (1.0-1.7); CALCIUM 8.2 mg/dL (8.5-10.1); CREATININE 1.4 mg/dL (0.7-1.3); GFR 51.4; POTASSIUM 4.2 mmol/L (3.5-5.1); TOTAL BILIRUBIN 0.4 mg/dL (0.2-1.0); TOTAL PROTEIN 6.2 g/dL (6.4-8.2)
--- NOTE | 2020-05-29 07:57 | PDOC ---
[facility] PROGRESS NOTE Date of Service DOS: DATE: 05/29/20 TIME: 07:53 Chief Complaint Chief Complaint A/P: Acute CHF with diastolic dysfunction with a 20-pound weight gain in 2 weeks. Peripheral edema. Chest pain, probable esophageal reflux disease. Troponin negative x 5. Extreme morbid obesity - Hx of Pushpa-en-Y: 11 yrs ago Diabetes. Hypertension. Chronic obstructive pulmonary disease, stable. Right sided bakers cyst measuring 4.6 x 3.9 x 2.3 cm. Chest pain: [place] ruled out. Plan ischemic evaluation possibly with cardiac cath on friday DM2 and HLP - improved after >300# wt loss from gastric bypass PLAN: 1. Aggressive diuresis. Cardiology is planning a right and left heart c atheterization on Friday.05-29 COVID-19 PCR. transthoracic echocardiogram venous dopplers to rule out deep venous thrombosis. 2. IV Lasix. 3. dvt prophylaxis 4. weight loss encouraged 5. Continue PPI for GERD and aspirin. very low probability for pulmonary embolism. Imdur, IV hydralazine p.r.n. for blood pressure control. outpatient sleep apnea study. I discussed the patient's care with nurse on the floor. ortho can see as out pt for kennedy's cyst Anticipate length of stay 4-5 days. Chest x-ray shows interstitial infiltrate, probably consistent with mild pulmonary edema. Total time spent with the patient's exam, chart review was 27 minutes. Greater than 50% of time was spent with the patient's exam, chart review, the patient care, coordination and consultation. 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 He states he has been more short of breath and he has had chest discomfort especially with exertion for the last 10-14 days. Denies fever or chills. Denies orthopnea. No nausea or vomiting. No evidence of swelling in his ankles. States he drinks three cups of coffee a day and a large container of water a day. He is a remote smoker, but does not use supplemental oxygen. States that he has diabetes and lost 300 lbs from his gastric bypass 11 years prior. Denies any recent falls or injury. 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 Chest radiograph with no acute abnormality. Pulmonary perfusion low probability of PE and LE venous dopplers negative for DVT. Improved with diuresis. Cardiology consulted. Less short of breath. Still with mild chest discomfort. Afebrile. CR down to 1.4. Vitals/I&O Vitals/I&O: Vital Signs Date Time Temp Pulse Resp B/P (MAP) Pulse Ox O2 Delivery O2 Flow Rate FiO2 05/29/20 03:27 98.6 62 16 133/64 (87) 94 Nasal Cannula 1.5 98.6 I & O 05/28/20 05/28/20 05/29/20 15:00 23:00 07:00 Intake Total 1800 ml 540 ml Output Total 2050 ml 2900 ml 2425 ml Balance -2050 ml -1100 ml -1885 ml Physical Exam General: Alert, Oriented X3, Cooperative, No acute distress Heart: Regular rate (SR with PACs), Normal S1, Other (distant heart spounds) Lungs: Clear, Other (diminished) Abdomen: Normal bowel sounds, Soft, No tenderness, Other (very obese) Extremities: No clubbing, No cyanosis, Other (1-2+ edema) Skin: No breakdown Assessment and Plan Assessmemt and Plan Problems Medical Problems: (1) Congestive heart failure Status: Acute (2) Hypertension Status: Acute (3) Shortness of breath Status: Acute Comment Review of Relevant I have reviewed the following items paulo (where applicable) has been applied. Medications: Current Medications Medications (Trade) Dose Ordered Sig/Radha Route PRN Reason Start Time Stop Time Status Last Admin Dose Admin Enoxaparin Sodium (Lovenox 60mg Syringe) 60 mg Q12HR SQ 05/28/20 11:00 05/28/20 11:00 Carvedilol (Coreg) 3.125 mg BIDWMEALS PO 05/28/20 17:00 05/28/20 17:15 Justifications for Admission General Conditions Other justification for admit: acute chf Other Justification ANGELICA PUGA MD May 29, 2020 07:56
[2020-05-29] MEDS: ASPIRIN ENTERIC COATED 81 MG TABLET.DR. PO SCH (08:23)
[2020-05-29] MEDS: HYDROcodone/APAP 7.5/325MG 1 TAB TABLET PO SCH ×3 (08:24→20:53)
[2020-05-29] MEDS: CARVEDILOL 3.125 MG TABLET. PO SCH ×2 (08:25→17:20)
[2020-05-29] MEDS: PANTOPRAZOLE 40 MG TABLET.DR. PO SCH (08:28)
[2020-05-29] MEDS: ISOSORBIDE MONONITRATE ER 30 MG TAB.ER.24H PO SCH (08:28)
[2020-05-29] MEDS ORDERED: fentaNYL PF VIAL 100 MCG/2 ML VIAL ONE ×2 (10:24→12:41)
[2020-05-29] MEDS ORDERED: VERAPAMIL 5 MG/2 ML VIAL. ONE (10:25)
[2020-05-29] MEDS ORDERED: MIDAZOLAM HCL/PF 5 MG/5 ML VIAL. ONE (10:25)
[2020-05-29] MEDS ORDERED: HEPARIN for IV BOLUS 10,000 UNIT/10 ML VIAL. ONE (10:25)
[2020-05-29] MEDS ORDERED: NITROGLYCERIN 200 MCG/2 ML SYRINGE FOR CATH/VASC LAB. ONE ×2 (10:25→13:11)
[2020-05-29] MEDS ORDERED: IODIXANOL 320 MG/ML 100 ML VIAL. ONE ×2 (10:26→12:26)
[2020-05-29] MEDS ORDERED: LIDOCAINE 1% Multi-Dose 20 ML VIAL. ONE (10:26)
[2020-05-29] MEDS ORDERED: MIDAZOLAM HCL/PF 5 MG/5 ML VIAL. IV ONE (11:45)
[2020-05-29] MEDS ORDERED: fentaNYL PF VIAL 100 MCG/2 ML VIAL IV ONE (11:45)
[2020-05-29] MEDS ORDERED: LIDOCAINE 1% Multi-Dose 20 ML VIAL. INJ ONE (11:45)
[2020-05-29] MEDS ORDERED: IODIXANOL 320 MG/ML 100 ML VIAL. IART ONE (11:45)
[2020-05-29] MEDS ORDERED: VERAPAMIL 5 MG/2 ML VIAL. IART ONE (11:45)
[2020-05-29] MEDS ORDERED: NITROGLYCERIN 200 MCG/2 ML SYRINGE FOR CATH/VASC LAB. IART ONE (11:45)
[2020-05-29] MEDS ORDERED: HEPARIN for IV BOLUS 10,000 UNIT/10 ML VIAL. IART ONE (11:45)
[2020-05-29] MEDS ORDERED: TIROFIBAN 5MG -0.9% NS 100 ML IV ONE ×2 (12:15→12:25)
[2020-05-29] MEDS ORDERED: TIROFIBAN 5MG -0.9% NS 100 ML IV PRN (12:18)
[2020-05-29] MEDS ORDERED: NITROGLYCERIN 200 MCG/2 ML SYRINGE FOR CATH/VASC LAB. ICAR ONE (12:30)
[2020-05-29] MEDS ORDERED: HEPARIN for IV BOLUS 10,000 UNIT/10 ML VIAL. IV ONE (12:30)
[2020-05-29] MEDS ORDERED: PRASUGREL 10 MG TABLET. PO ONE (12:30)
[2020-05-29] MEDS ORDERED: PRASUGREL 10 MG TABLET. ONE ×2 (12:51→13:10)
[2020-05-29] MEDS: ASCORBIC ACID 500 MG TABLET PO SCH (14:19)
[2020-05-29] MEDS: MULTIVITAMIN with MINERAL TABLET. PO SCH (14:19)
[2020-05-29] MEDS: ALLOPURINOL 300 MG TABLET. PO SCH (14:19)
[2020-05-29] MEDS: POTASSIUM CHLORIDE 20 MEQ TABLET.ER. PO SCH (14:19)
[2020-05-29] MEDS: FUROSEMIDE 40 MG/4 ML VIAL. IVP SCH ×2 (14:20→16:00)
[2020-05-29] MEDS: DICLOFENAC SODIUM 1% TOPICAL GEL 100GM TUBE. TP SCH ×2 (14:29→20:51)
--- NOTE | 2020-05-29 14:50 | CARD ---
MR#: [id number] Date of Study: 05/29/2020 Ordering Physician: POLO AMOR, Referring Physician: POLO AMOR, Tech: Sarah Costa APPROVED REPORT Technologist: Sarah Costa Nurse: Sole Pérez R.N. Procedure(s) performed: fl time: 10.8 mins dose: 137 gycm2 contrast: 150 ml moderate sedation: 90 MINS RHC, LHC, PCI of the LAD, IVUS of the LAD HISTORY : The patient is a 60 year-old male with a history of . INDICATION The indication(s) include : unstable angina , dyspnea. [facility] Clinical Frailty Scale [facility] Clinical Frailty Scale: Mildly Frail Heart Failure Heart Failure: Yes If Yes, Newly Diagnosed: Yes If Yes, HF Type: Diastolic If Yes, NYHA Class: Class III CASE TECHNIQUE IV conscious sedation was used throughout procedure with appropriate monitoring and was performed in the presence of a registered nurse who was an independent trained observer other than the physician p erforming the procedure. During this case, Fluoroscopy and low osmolar contrast were used for imaging . Specimen(s) Removed: N/A Estimated Blood loss: 20 cc's. PROCEDURE NARRATIVE Clinical information: 60-year-old man who presented to the hospital in setting of accelerating unstable angina and worsenin g diastolic heart failure. He was referred to the hospital by his primary care physician for worseni ng symptoms. Procedure details: After appropriate informed consent the right wrist and right neck were prepped and draped in usual st erile fashion. Under 2% lidocaine local anesthesia a 5 [place]an sheath was placed in the right interna l jugular vein and a 6 [place]an sheath was placed in the right radial artery. Next, diagnostic angiogr aphy was performed with a 6 [place]andan TIG catheter and LVEDP was obtained with a 6 [place] TIG catheter a nd pullback was performed. Right heart catheterization was performed with a 5 [place]an PA catheter. Findings: RA 0 RV 24/1/4 PA 25/4/16 Wedge 4 mmHg PA saturation 70% FA saturation 98% Faina cardiac output 7.1 L/min, cardiac index 2.8 LVEDP 3 mmHg No LV to aortic pullback gradient Left ventriculogram deferred due to known normal ejection fraction without significant valvular disea se by echo Coronary angiography: Left main is a large-caliber vessel with mild luminal irregularities LAD is a large-caliber vessel with a mid 90% stenosis Left circumflex is a moderate caliber nondominant vessel with mild luminal irregularities of up to 30 % Ramus is a moderate caliber vessel with mild luminal irregularities RCA is a large caliber dominant vessel with mild luminal irregularities up to 20% Interventional technique: Heparin and tirofiban were used for anticoagulation. Through a 6 [place]an EBU [address] guide catheter a [address] ter wire was placed in the distal LAD. Intravascular ultrasound was performed to assess for lesion c haracteristics. There was severe plaque in the midportion. This lesion was angioplastied with a 3.0 x 15 mm balloon and then stented with a 4.5 x 26 mm resolute drug-eluting stent. The proximal half of the lesion was then postdilated with a 5 mm noncompliant balloon at nominal pressures. The distal half of the stent was post with a 4.5 mm noncompliant balloon. Final angiography demonstrated excel lent stent expansion with ENMANUEL-3 flow in the vessel no evidence of guide or wire related complication s. The right radial sheath was removed and hemostasis was achieved via a radial band. The right nec k sheath was also removed and hemostasis was achieved with manual compression. There were no acute c omplications. ENMANUEL Flow ENMANUEL Flow (Pre-Intervention): ENMANUEL-3 ENMANUEL Flow (Post-Intervention): ENMANUEL-3 Conclusion 1. Normal biventricular filling pressures 2. No significant pulmonary hypertension 3. Normal cardiac output 4. One-vessel coronary artery disease with successful complex PCI of the LAD with implantation of a 4.5 x 26 mm resolute drug-eluting stent, postdilated with a 5 mm noncompliant balloon Recommendations 1. Aspirin 81 mg daily indefinitely 2. Prasugrel 10 mg daily for 1 full year 3. Continue risk factor modification including cardiac rehab referral and high-dose statin therapy. Signed by : Mick Madsen, Electronically Approved : 05/29/2020 14:50:10
--- NOTE | 2020-05-29 15:11 | NUR ---
SS following up with discharge planning. SS reviewed pt chart and discussed with pt RN. Pt is from home and is currently on room air. COVID19 negative. Pt had heart cath today. PT/OT recommending home independent. SS will continue to follow for discharge planning.
[2020-05-29] MEDS: traMADol 50 MG TABLET PO PRN (23:53)
[2020-05-30 02:53] VITALS: BP 150/83
[2020-05-30 07:14] VITALS: BP 137/70
--- NOTE | 2020-05-30 08:11 | PDOC ---
[facility] PROGRESS NOTE Date of Service DOS: DATE: 05/30/20 TIME: 07:58 Chief Complaint Chief Complaint A/P: Acute CHF with diastolic dysfunction with a 20-pound weight gain in 2 weeks. Peripheral edema. Chest pain, probable esophageal reflux disease. Troponin negative x 5. Extreme morbid obesity - Hx of Pushpa-en-Y: 11 yrs ago Diabetes. Hypertension. Chronic obstructive pulmonary disease, stable. Right sided bakers cyst measuring 4.6 x 3.9 x 2.3 cm. Chest pain: [place] ruled out. Plan ischemic evaluation possibly with cardiac cath on friday DM2 and HLP - improved after >300# wt loss from gastric bypass PLAN: 1. Aggressive diuresis. Cardiology is planning a right and left heart c atheterization on Friday.05-29 COVID-19 PCR. transthoracic echocardiogram venous dopplers to rule out deep venous thrombosis. 2. IV Lasix. 3. dvt prophylaxis 4. weight loss encouraged outpatient sleep apnea study. I discussed the patient's care with nurse on the floor. ortho can see as out pt for kennedy's cyst Total time spent with the patient's exam, chart review was 27 minutes. Greater than 50% of time was spent with the patient's exam, chart review, the patient care, coordination and consultation. 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 He states he has been more short of breath and he has had chest discomfort especially with exertion for the last 10-14 days. Denies fever or chills. Denies orthopnea. No nausea or vomiting. No evidence of swelling in his ankles. States he drinks three cups of coffee a day and a large container of water a day. He is a remote smoker, but does not use supplemental oxygen. States that he has diabetes and lost 300 lbs from his gastric bypass 11 years prior. Denies any recent falls or injury. 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 Chest radiograph with no acute abnormality. Pulmonary perfusion low probability of PE and LE venous dopplers negative for DVT. Improved with diuresis. Cardiology consulted. 05/29: Less short of breath. Still with mild chest discomfort. Afebrile. CR down to 1.4. To veterinarian laboratory animal care One-vessel coronary artery disease with successful complex PCI of the LAD with implantation of a 4.5 x 26 mm resolute drug-eluting stent, postdilated with a 5 mm noncompliant balloon Feeling improved. Still with lower extremity edema. Chest pain resolved. Plans on effient for 1 year. Vitals/I&O Vitals/I&O: Vital Signs Date Time Temp Pulse Resp B/P (MAP) Pulse Ox O2 Delivery O2 Flow Rate FiO2 05/30/20 07:14 97.9 60 19 137/70 (92) 96 Nasal Cannula 2.0 97.9 I & O 05/29/20 05/29/20 05/30/20 15:00 23:00 07:00 Intake Total 0 ml 725 ml 400 ml Output Total 290 ml 900 ml 1250 ml Balance -290 ml -175 ml -850 ml Physical Exam General: Alert, Oriented X3, Cooperative, No acute distress Heart: Regular rate (SR with PACs), Normal S1, Other (distant heart spounds) Lungs: Clear, Other (diminished) Abdomen: Normal bowel sounds, Soft, No tenderness, Other (very obese) Extremities: No clubbing, No cyanosis, Other (1-2+ edema) Skin: No breakdown Labs Labs: Laboratory Tests Test 05/29/20 13:10 05/29/20 13:42 Activated Clotting Time 180 sec (92-181) 184 sec (92-181) Assessment and Plan Assessmemt and Plan Problems Medical Problems: (1) Congestive heart failure Status: Acute (2) Hypertension Status: Acute (3) Shortness of breath Status: Acute Comment Review of Relevant I have reviewed the following items paulo (where applicable) has been applied. Medications: Current Medications Medications (Trade) Dose Ordered Sig/Radha Route PRN Reason Start Time Stop Time Status Last Admin Dose Admin Nitroglycerin (Nitroglycerin) 200 mcg 1X ONCE IART 05/29/20 11:45 05/29/20 11:53 DC 05/29/20 13:05 Verapamil HCl (Verapamil) 2.5 mg 1X ONCE IART 05/29/20 11:45 05/29/20 11:53 DC 05/29/20 13:07 Heparin Sodium (Porcine) (Heparin Sodium) 2,500 unit 1X ONCE IART 05/29/20 11:45 05/29/20 11:53 DC 05/29/20 13:07 Heparin Sodium/ Sodium Chloride (HEPARIN for ARTERIAL LINE FLUSH) 1,000 unit 1X ONCE IART 05/29/20 11:45 05/29/20 11:53 DC 05/29/20 13:05 Heparin Sodium/ Sodium Chloride (HEPARIN for ARTERIAL LINE FLUSH) 1,000 unit 1X ONCE IART 05/29/20 11:45 05/29/20 11:53 DC 05/29/20 13:05 Midazolam HCl (Versed) 5 mg 1X ONCE IV 05/29/20 11:45 05/29/20 11:53 DC 05/29/20 13:05 Fentanyl Citrate (Fentanyl 2ml Vial) 100 mcg 1X ONCE IV 05/29/20 11:45 05/29/20 11:53 DC 05/29/20 13:06 Iodixanol (Visipaque 320) 100 ml 1X ONCE IART 05/29/20 11:45 05/29/20 11:53 DC 05/29/20 13:04 Lidocaine HCl (Lidocaine 1% 20ml Vial) 20 ml 1X ONCE INJ 05/29/20 11:45 05/29/20 11:53 DC 05/29/20 13:04 Nitroglycerin (Nitroglycerin) 200 mcg 1X ONCE ICAR 05/29/20 12:30 05/29/20 12:34 DC 05/29/20 13:06 Prasugrel (Effient) 60 mg 1X ONCE PO 05/29/20 12:30 05/29/20 12:34 DC 05/29/20 13:05 Heparin Sodium (Porcine) (Heparin Sodium) 4,000 unit 1X ONCE IV 05/29/20 12:30 05/29/20 12:34 DC 05/29/20 13:08 Tirofiban/Sodium Chloride 100 ml @ 0 mls/hr CONT PRN IV PER PROTOCOL 05/29/20 12:18 05/29/20 18:17 DC 05/29/20 17:18 Justifications for Admission General Conditions Other justification for admit: acute chf Other Justification ANGELICA PUGA MD May 30, 2020 08:11
[2020-05-30] MEDS ORDERED: ISOS30TA68 PO (08:13)
[2020-05-30] MEDS ORDERED: PRAS10TA9 PO (08:13)
[2020-05-30] MEDS: FUROSEMIDE 40 MG/4 ML VIAL. IVP SCH (08:26)
[2020-05-30] MEDS: MULTIVITAMIN with MINERAL TABLET. PO SCH (08:26)
[2020-05-30] MEDS: HYDROcodone/APAP 7.5/325MG 1 TAB TABLET PO SCH ×2 (08:27→14:27)
[2020-05-30] MEDS: CARVEDILOL 3.125 MG TABLET. PO SCH ×2 (08:27→16:55)
[2020-05-30] MEDS: ALLOPURINOL 300 MG TABLET. PO SCH (08:27)
[2020-05-30] MEDS: POTASSIUM CHLORIDE 20 MEQ TABLET.ER. PO SCH (08:27)
[2020-05-30] MEDS: ASCORBIC ACID 500 MG TABLET PO SCH (08:27)
[2020-05-30] MEDS: PANTOPRAZOLE 40 MG TABLET.DR. PO SCH (08:28)
[2020-05-30] MEDS: ASPIRIN ENTERIC COATED 81 MG TABLET.DR. PO SCH (08:28)
[2020-05-30] MEDS: ISOSORBIDE MONONITRATE ER 30 MG TAB.ER.24H PO SCH (08:28)
[2020-05-30] MEDS: DICLOFENAC SODIUM 1% TOPICAL GEL 100GM TUBE. TP SCH (08:29)
[2020-05-30] MEDS ORDERED: PRASUGREL 10 MG TABLET. PO SCH (09:00)
[2020-05-30 10:28] VITALS: BP 114/62
[2020-05-30 10:45] LABS: CALCIUM 8.3 mg/dL (8.5-10.1); CREATININE 1.6 mg/dL (0.7-1.3); POTASSIUM 4.8 mmol/L (3.5-5.1)
[2020-05-30 11:24] LABS: BASO % 1 % (0-3); EOS # 0.2 x10^3/uL (0.0-0.7); EOS % 4 % (0-3); HEMATOCRIT 39.8 % (39.0-53.0); HEMOGLOBIN 13.1 g/dL (13.0-17.5); LYMPH # 0.9 x10^3/uL (1.0-4.8); LYMPH % 16 % (24-48); MEAN CORPUSCULAR HEMOGLOBIN 32 pg (25-35); MEAN CORPUSCULAR HGB CONC 33 g/dL (31-37); MEAN CORPUSCULAR VOLUME 96 fL (79-100); MONO # 0.5 x10^3/uL (0.0-1.1); MONO % 9 % (0-9); NEUT % 71 % (31-73); PLATELET COUNT 233 x10^3/uL (140-400); RED BLOOD COUNT 4.15 x10^6/uL (4.30-5.70); RED CELL DISTRIBUTION WIDTH 13.9 % (11.5-14.5); WHITE BLOOD COUNT 5.6 x10^3/uL (4.0-11.0)
--- NOTE | 2020-05-30 11:30 | PDOC3 ---
Discharge Summary Visit Information Date of Admission: May 26, 2020 Date of Discharge: May 30, 2020 Admitting Diagnosis: Acute CHF Final Diagnosis Problems Medical Problems: (1) Congestive heart failure Status: Acute (2) Hypertension Status: Acute (3) Shortness of breath Status: Acute Brief Hospital Course Allergies Allergies Coded Allergies Type Severity Reaction Last Updated Verified No Known Drug Allergies 05/25/20 No Vital Signs Vital Signs Date Time Temp Pulse Resp B/P (MAP) Pulse Ox O2 Delivery O2 Flow Rate FiO2 05/30/20 10:28 98.0 64 19 114/62 (79) 96 Nasal Cannula 2.0 98.0 Lab Results Laboratory Tests Test 05/29/20 05:45 05/29/20 13:10 05/29/20 13:42 05/30/20 09:03 White Blood Count 6.1 x10^3/uL (4.0-11.0) 5.6 x10^3/uL (4.0-11.0) Red Blood Count 3.91 x10^6/uL (4.30-5.70) 4.15 x10^6/uL (4.30-5.70) Hemoglobin 12.4 g/dL (13.0-17.5) 13.1 g/dL (13.0-17.5) Hematocrit 37.5 % (39.0-53.0) 39.8 % (39.0-53.0) Mean Corpuscular Volume 96 fL (79-100) 96 fL (79-100) Mean Corpuscular Hemoglobin 32 pg (25-35) 32 pg (25-35) Mean Corpuscular Hemoglobin Concent 33 g/dL (31-37) 33 g/dL (31-37) Red Cell Distribution Width 13.8 % (11.5-14.5) 13.9 % (11.5-14.5) Platelet Count 217 x10^3/uL (140-400) 233 x10^3/uL (140-400) Neutrophils (%) (Auto) 72 % (31-73) 71 % (31-73) Lymphocytes (%) (Auto) 15 % (24-48) 16 % (24-48) Monocytes (%) (Auto) 10 % (0-9) 9 % (0-9) Eosinophils (%) (Auto) 3 % (0-3) 4 % (0-3) Basophils (%) (Auto) 1 % (0-3) 1 % (0-3) Neutrophils # (Auto) 4.4 x10^3/uL (1.8-7.7) 4.0 x10^3/uL (1.8-7.7) Lymphocytes # (Auto) 0.9 x10^3/uL (1.0-4.8) 0.9 x10^3/uL (1.0-4.8) Monocytes # (Auto) 0.6 x10^3/uL (0.0-1.1) 0.5 x10^3/uL (0.0-1.1) Eosinophils # (Auto) 0.2 x10^3/uL (0.0-0.7) 0.2 x10^3/uL (0.0-0.7) Basophils # (Auto) 0.0 x10^3/uL (0.0-0.2) 0.0 x10^3/uL (0.0-0.2) Sodium Level 140 mmol/L (136-145) 141 mmol/L (136-145) Potassium Level 4.2 mmol/L (3.5-5.1) 4.8 mmol/L (3.5-5.1) Chloride Level 103 mmol/L (98-107) 102 mmol/L (98-107) Carbon Dioxide Level 31 mmol/L (21-32) 30 mmol/L (21-32) Anion Gap 6 (6-14) 9 (6-14) Blood Urea Nitrogen 23 mg/dL (8-26) 29 mg/dL (8-26) Creatinine 1.4 mg/dL (0.7-1.3) 1.6 mg/dL (0.7-1.3) Estimated GFR (Cockcroft-Gault) 51.4 44.0 BUN/Creatinine Ratio 16 (6-20) Glucose Level 73 mg/dL (70-99) 97 mg/dL (70-99) Calcium Level 8.2 mg/dL (8.5-10.1) 8.3 mg/dL (8.5-10.1) Total Bilirubin 0.4 mg/dL (0.2-1.0) Aspartate Amino Transf (AST/SGOT) 18 U/L (15-37) Alanine Aminotransferase (ALT/SGPT) 21 U/L (16-63) Alkaline Phosphatase 72 U/L (46-116) Total Protein 6.2 g/dL (6.4-8.2) Albumin 2.7 g/dL (3.4-5.0) Albumin/Globulin Ratio 0.8 (1.0-1.7) Activated Clotting Time 180 sec (92-181) 184 sec (92-181) Laboratory Tests Test 05/29/20 13:10 05/29/20 13:42 05/30/20 09:03 Activated Clotting Time 180 sec (92-181) 184 sec (92-181) White Blood Count 5.6 x10^3/uL (4.0-11.0) Red Blood Count 4.15 x10^6/uL (4.30-5.70) Hemoglobin 13.1 g/dL (13.0-17.5) Hematocrit 39.8 % (39.0-53.0) Mean Corpuscular Volume 96 fL (79-100) Mean Corpuscular Hemoglobin 32 pg (25-35) Mean Corpuscular Hemoglobin Concent 33 g/dL (31-37) Red Cell Distribution Width 13.9 % (11.5-14.5) Platelet Count 233 x10^3/uL (140-400) Neutrophils (%) (Auto) 71 % (31-73) Lymphocytes (%) (Auto) 16 % (24-48) Monocytes (%) (Auto) 9 % (0-9) Eosinophils (%) (Auto) 4 % (0-3) Basophils (%) (Auto) 1 % (0-3) Neutrophils # (Auto) 4.0 x10^3/uL (1.8-7.7) Lymphocytes # (Auto) 0.9 x10^3/uL (1.0-4.8) Monocytes # (Auto) 0.5 x10^3/uL (0.0-1.1) Eosinophils # (Auto) 0.2 x10^3/uL (0.0-0.7) Basophils # (Auto) 0.0 x10^3/uL (0.0-0.2) Sodium Level 141 mmol/L (136-145) Potassium Level 4.8 mmol/L (3.5-5.1) Chloride Level 102 mmol/L (98-107) Carbon Dioxide Level 30 mmol/L (21-32) Anion Gap 9 (6-14) Blood Urea Nitrogen 29 mg/dL (8-26) Creatinine 1.6 mg/dL (0.7-1.3) Estimated GFR (Cockcroft-Gault) 44.0 Glucose Level 97 mg/dL (70-99) Calcium Level 8.3 mg/dL (8.5-10.1) Brief Hospital Course Mr Gonzales is a 60-year-old male from [place], [place] 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 He states he has been more short of breath and he has had chest discomfort especially with exertion for the last 10-14 days. Denies fever or chills. Denies orthopnea. No nausea or vomiting. No evidence of swelling in his ankles. States he drinks three cups of coffee a day and a large container of water a day. He is a remote smoker, but does not use supplemental oxygen. States that he has diabetes and lost 300 lbs from his gastric bypass 11 years prior. Denies any recent falls or injury. 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 Chest radiograph with no acute abnormality. Pulmonary perfusion low probability of PE and LE venous dopplers negative for DVT. Improved with diuresis. Cardiology consulted. 05/29: Less short of breath. Still with mild chest discomfort. Afebrile. CR down to 1.4. 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 Still with lower extremity edema. Chest pain resolved. Plans on effient for 1 year. Problem list: Acute CHF with diastolic dysfunction with a 20-pound weight gain in 2 weeks. Peripheral edema. Chest pain, probable esophageal reflux disease. Troponin negative x 5. Extreme morbid obesity - Hx of Pushpa-en-Y: 11 yrs ago Diabetes. Hypertension. Chronic obstructive pulmonary disease, stable. Right sided bakers cyst measuring 4.6 x 3.9 x 2.3 cm. Chest pain: [place] ruled out. Plan ischemic evaluation possibly with cardiac cath on friday DM2 and HLP - improved after >300# wt loss from gastric bypass PLAN: Cardiac rehab 1 year effient weight loss encouraged outpatient sleep apnea study. I discussed the patient's care with nurse on the floor. ortho can see as out pt for kennedy's cyst Greater than 30 minutes spent on d/c home Discharge Information Condition at Discharge: Improved Follow Up: Weeks (1) Disposition/Orders: D/C to Home Scheduled Acetaminophen (Tylenol) 325 Mg Tablet, 2 TAB PO PRN Q4HRS for pain, #30 (Reported) Entered as Reported by: ROSALIE EDMONDSON on 05/26/20508 Last Action: New Order on 05/26/20508 by ROSALIE EDMONDSON Allopurinol (Allopurinol) 300 Mg Tablet, 300 MG PO DAILY for gout, (Reported) Entered as Reported by: ROSALIE EDMONDSON on 05/26/20508 Last Action: Continued on 05/26/201157 by CHI SONG Ascorbic Acid (Vitamin C) 100 Mg Tablet, 1 TAB PO DAILY for supplement for 30 D ays, #30 Ref 0 (Reported) Entered as Reported by: ROSALIE EDMONDSON on 05/26/20508 Last Action: Converted on 05/26/201157 by CHI SONG Aspirin (Aspirin) 325 Mg Tablet, 325 MG PO DAILY for blood thinner, (Reported) Entered as Reported by: ROSALIE EDMONDSON on 05/26/20508 Last Action: New Order on 05/26/20508 by ROSALIE EDMONDSON Bumetanide (Bumetanide) 2 Mg Tablet, 2 MG PO DAILY for diuretic, (Reported) Entered as Reported by: ROSALIE EDMONDSON on 05/26/20508 Last Action: New Order on 05/26/20508 by ROSALIE EDMONDSON Carvedilol (Coreg ) 3.125 Mg Tablet, 3.125 MG PO BIDWMEALS for CARDIAC, (Reported) Entered as Reported by: ROSALIE EDMONDSON on 05/26/20508 Last Action: Continued on 05/26/20 100 by JAZ CODY Fluticasone/Umeclidin/Vilanter (Trelegy Ellipta 100-62.5-25) 1 Each Blst.w.dev, 1 PUFF IH DAILY for inhaler, (Reported) Entered as Reported by: ROSALIE EDMONDSON on 05/26/20508 Last Action: New Order on 05/26/20508 by ROSALIE EDMONDSON Hydrocodone/Acetaminophen (Hydrocodone-Acetamin 7.5-325) 1 Each Tablet, 1 EACH PO TID for pain, (Reported) Entered as Reported by: ROSALIE EDMONDSON on 05/26/20508 Last Action: Continued on 05/26/201157 by CHI SONG Isosorbide Mononitrate (Isosorbide Mononitrate Er) 30 Mg Tab.er.24h, 30 MG PO DAILY for CAD for 30 Days, #30 Ref 5 Prescribed by: ANGELICA PUGA MD on 05/30/20812 Losartan Potassium (Losartan Potassium) 50 Mg Tablet, 50 MG PO DAILY for HYPERTENSION, (Reported) Entered as Reported by: ROSALIE EDMONDSON on 05/26/20508 Last Action: New Order on 05/26/20508 by ROSALIE EDMONDSON Methocarbamol (Robaxin-750) 750 Mg Tablet, 750 MG PO DAILY for muscle spasm, (Reported) Entered as Reported by: ROSALIE EDMONDSON on 05/26/20508 Last Action: New Order on 05/26/20508 by ROSALIE EDMONDSON Multivitamin (Daily Value) 1 Each Tablet, 1 TAB PO DAILY for supplement for 30 Days, #30 Ref 0 (Reported) Entered as Reported by: ROSALIE EDMONDSON on 05/26/20508 Last Action: Converted on 05/26/201157 by CHI SONG Omeprazole (Omeprazole) 20 Mg Tablet.dr, 20 MG PO BID for heartburn, (Reported) Entered as Reported by: ROSALIE EDMONDSON on 05/26/20508 Last Action: Converted on 05/26/201000 by JAZ CODY Potassium Chloride (Potassium Chloride ) 20 Meq Tablet.er, 20 MEQ PO DAILY for SUPPLEMENT, (Reported) Entered as Reported by: ROSALIE EDMONDSON on 05/26/20508 Last Action: Continued on 05/26/201000 by JAZ CODY Prasugrel Hcl (Effient) 10 Mg Tablet, 1 TAB PO DAILY for CAD for 90 Days, #90 Ref 3 Prescribed by: ANGELICA PUGA MD on 05/30/20 0813 Justicifation of Admission Dx: Justifications for Admission: Justification of Admission Dx: Yes CHF: Hemodynamic Instability ANGELICA PUGA MD May 30, 2020 11:29
--- NOTE | 2020-05-30 12:26 | NUR ---
SS following up with discharge planning. SS reviewed pt chart and discussed with pt RN. Pt is currently on room air. COVID19 negative. PT/OT recommended home independent. Discharge order on the chart for home with self care.
--- NOTE | 2020-05-30 13:58 | PDOC ---
JAZ CODY PEWTER FINISHER 05/30/20 1358: CARDIO Progress Notes Date and Time Date of Service 05/30/2020 Time of Evaluation 1140 Subjective Subjective: No Chest Pain, No shortness of breath, No Palpitations Vitals Vitals Vital Signs Date Time Temp Pulse Resp B/P (MAP) Pulse Ox O2 Delivery O2 Flow Rate FiO2 05/30/20 10:28 98.0 64 19 114/62 (79) 96 Nasal Cannula 2.0 98.0 Weight Weight [ ] Input and Output Intake and Output Intake and Output 05/30/20 07:00 Intake Total 1125 ml Output Total 2440 ml Balance -1315 ml Intake Oral 900 ml IV Total 225 ml Output Urine Total 2440 ml Laboratory Labs Laboratory Tests Test 05/30/20 09:03 White Blood Count 5.6 x10^3/uL (4.0-11.0) Red Blood Count 4.15 x10^6/uL (4.30-5.70) Hemoglobin 13.1 g/dL (13.0-17.5) Hematocrit 39.8 % (39.0-53.0) Mean Corpuscular Volume 96 fL (79-100) Mean Corpuscular Hemoglobin 32 pg (25-35) Mean Corpuscular Hemoglobin Concent 33 g/dL (31-37) Red Cell Distribution Width 13.9 % (11.5-14.5) Platelet Count 233 x10^3/uL (140-400) Neutrophils (%) (Auto) 71 % (31-73) Lymphocytes (%) (Auto) 16 % (24-48) Monocytes (%) (Auto) 9 % (0-9) Eosinophils (%) (Auto) 4 % (0-3) Basophils (%) (Auto) 1 % (0-3) Neutrophils # (Auto) 4.0 x10^3/uL (1.8-7.7) Lymphocytes # (Auto) 0.9 x10^3/uL (1.0-4.8) Monocytes # (Auto) 0.5 x10^3/uL (0.0-1.1) Eosinophils # (Auto) 0.2 x10^3/uL (0.0-0.7) Basophils # (Auto) 0.0 x10^3/uL (0.0-0.2) Sodium Level 141 mmol/L (136-145) Potassium Level 4.8 mmol/L (3.5-5.1) Chloride Level 102 mmol/L (98-107) Carbon Dioxide Level 30 mmol/L (21-32) Anion Gap 9 (6-14) Blood Urea Nitrogen 29 mg/dL (8-26) Creatinine 1.6 mg/dL (0.7-1.3) Estimated GFR (Cockcroft-Gault) 44.0 Glucose Level 97 mg/dL (70-99) Calcium Level 8.3 mg/dL (8.5-10.1) Physical Exam HEENT: Neck Supple W Full Motion Chest: Symmetric LUNGS: Clear to Auscultation Heart: S1S2, RRR (SR) Abdomen: Soft N/T Extremities: Other (3+ bilateral LE pitting edema) Neurology: alert, oriented, follow commands Assessment Assessment 1. Chest pain: UA features. S/P PCI/MOISÉS to LAD 2. Acute diastolic CHF: compensated. RHC revealed normal biV filling presures 3. Morbid obesity 4. Hx of DM2 and HLP: resolved after >300# wt loss from gastric bypass 5. 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 HTN: controlled 7. COPD: stable 8. Persistent leg edema: noted hemosideration, likely venous insufficiency, neg for DVT 9. Suspect CKD3: Cr up to 1.6 otherwise stable Recommendations 1. DC lasix. Provide PO PRN. IVF bolus. BMP next week. No fruther bradycardia. Continue low dose coreg. Continue imdur. No ACEi/ARB 2. Cardiac rehab. dietitian consult 3. ASA and effient 4. Consider outpt PAYAL w/u 5. Follow up in office as scheduled 6. Compression stocking and elevation. Justicifation of Admission Dx: Justifications for Admission: Justification of Admission Dx: Yes CHF: Hemodynamic Instability HECTOR ENRIQUEZ MD 05/30/204: CARDIO Progress Notes Plan Plan Patient seen and examined. Agree with above nurse practitioner note. Supportive care. Discussed need for continuation of aspirin and prasugrel. He is euvolemic currently. He feels well. JAZ CODY APRN May 30, 2020 13:58 HECTOR ENRIQUEZ MD May 30, 2020 18:04
[2020-05-30 14:50] VITALS: BP 119/74
[2020-05-30] MEDS ORDERED: IV NORMAL SALINE 500ML BAG 500 ML IV ONE (15:00)
--- NOTE | 2020-05-30 16:46 | NUR ---
Discharge: Teaching verbal and written. Reviewed medications, orders, follow-up, CHF, cardiac cath, CAD, diet, ect. Patient verbalized understanding. IV removed without complications, catheter tip in tact. All belongings with patient. 2 prescriptions sent to [facility] pharmacy per Dr. Villa. Paper prescription for CMP to be drawn next week. Bumex changed to PRN
--- NOTE | 2020-05-30 17:58 | NUR ---
Discharge: Patient assisted off of unit via wheelchair. Patient asked for me to take him to security. Patient with security to get his "pistol" back. Security to escort patient out of hospital. Patients friend in parking lot.
--- NOTE | 2020-05-31 12:10 | RESP ---
DATE OF SERVICE: 05/27/2020 NOCTURNAL OXIMETRY STUDY The patient's mean oxygen saturation remained around 88% with the lowest of 68%. 66% of the time, oxygen saturation remained less than 90%, which was 5 hours and 9 minutes. IMPRESSION: Abnormal nocturnal oximetry study with nocturnal hypoxia. RECOMMENDATIONS: The patient would benefit from nocturnal oxygen. If clinical suspicion for sleep apnea is high, then consider doing polysomnogram. LENA RIVER MD DR: FAVIOLA/nts JOB#: [id number] / [id number]
== END 2020-05-30 18:01 | disposition home or self-care (01) | DRG 246 ==
LOC: ER 17:40 → ED HOLD 21:13 → 2 NORTH 22:12 → OBSVTOIN 05-26 11:29 → 2 SOUTH 05-30 13:35 → 2 NORTH 05-30 13:56
PROVIDERS: ADMIT Internal Medicine; ATTEND Internal Medicine
PROC: 027034Z Dilation of Coronary Artery, One Artery with Drug-eluting Intraluminal Device, Percutaneous Approach (ICD-10-PCS; principal; 2020-05-29)
PROC: 4A023N8 Measurement of Cardiac Sampling and Pressure, Bilateral, Percutaneous Approach (ICD-10-PCS; 2020-05-29)
PROC: B2111ZZ Fluoroscopy of Multiple Coronary Arteries using Low Osmolar Contrast (ICD-10-PCS; 2020-05-29)
PROC: B240ZZ3 Ultrasonography of Single Coronary Artery, Intravascular (ICD-10-PCS; 2020-05-29)
PROC: 3E0 Administration, Physiological Systems and Anatomical Regions, Introduction (ICD-10-PCS; 2020-05-29)
DX: I25.110 Atherosclerotic heart disease of native coronary artery with unstable angina pectoris (principal); I50.33 Acute on chronic diastolic (congestive) heart failure; I11.0 Hypertensive heart disease with heart failure; E11.9 Type 2 diabetes mellitus without complications; E66.01 Morbid (severe) obesity due to excess calories; E78.5 Hyperlipidemia, unspecified; I87.2 Venous insufficiency (chronic) (peripheral); J44.9 Chronic obstructive pulmonary disease, unspecified; K21.9 Gastro-esophageal reflux disease without esophagitis; M19.012 Primary osteoarthritis, left shoulder; M71.20 Synovial cyst of popliteal space [Baker], unspecified knee; Z82.49 Family history of ischemic heart disease and other diseases of the circulatory system; Z87.891 Personal history of nicotine dependence; Z98.61 Coronary angioplasty status; Z98.84 Bariatric surgery status; M10.9 Gout, unspecified; M19.90 Unspecified osteoarthritis, unspecified site; Z20.822 Contact with and (suspected) exposure to COVID-19
CPT/HCPCS: 36415; 71045; 78580; 80048; 80053; 80061; 81001; 83735; 83880; 84443; 84484; 85025; 85347; 85379; 86335; 87426; 92928; 92978; 93005; 93306; 93460; 93970; 94799; 96374; 96375; 99152; 99153; 99285; A9540; C1725; C1753; C1769; C1874; C1887; C1892; C1894; G0378; G0379; J1644; J1650; J1940; J2250; J3010; J3490; J7040; Q9967; U0003; 97535-GO; J3246

== ENCOUNTER → 2021-08-13 | Outpatient (CLI) | payer MEDICARE ==
[~2021-08-13] MED LIST: ACET325T9 PO; ALLO300T PO; ASCO100T4 PO; ASPI325T8 PO; BUME2TAB3 PO; CARV3.12 PO; FLUT1BLS3 IH; HYDR-2763 PO; ISOS30TA68 PO; LOSA-73 PO; METH-38 PO; MULT-496 PO; OMEP20TA91 PO; POTA20TA4 PO; PRAS10TA9 PO
--- NOTE | 2021-08-14 10:10 | CARD ---
MR#: [id number] Date of Study: 08/13/2021 Ordering Physician: HECTOR ENRIQUEZ, Referring Physician: HECTOR ENRIQUEZ, Tech: CHOLO KIRKPATRICK [facility] APPROVED REPORT EXAM: Two-dimensional and M-mode echocardiogram with Doppler and color Doppler. Other Information Quality : AverageHR: 61bpm Rhythm : NSR INDICATION Cardiac Disease: CAD RISK FACTORS Obesity 2D DIMENSIONS RVDd3.7 (2.9-3.5cm)Left Atrium(2D)3.5 (1.6-4.0cm) IVSd1.3 (0.7-1.1cm)Aortic Root(2D)4.0 (2.0-3.7cm) LVDd4.9 (3.9-5.9cm)LVOT Diameter2.4 (1.8-2.4cm) PWd1.2 (0.7-1.1cm)LVDs2.9 (2.5-4.0cm) FS (%) 41.0 %SV81.2 ml LVEF(%)71.7 (>50%) Aortic Valve AoV Peak Alexis.133.0cm/Jorge Peak GR.9.0mmHg LVOT Peak Alexis.110.1cm/sAVA (VMAX)3.65cm2 Mitral Valve MV E Rsswqiik79.1cm/sMV DECEL [id number] MV A Qwjrxnim46.3cm/sE/A Ratio0.9 Pulmonary Vein S1 Uomkfjiw32.6cm/sD2 Khxtwlxs41.6cm/s PVa [id number] LEFT VENTRICLE The left ventricle is normal size. There is normal left ventricular wall thickness. The left ventricu lar systolic function is normal. The ejection fraction is 55-60%. No regional wall motion abnormaliti es noted. Transmitral Doppler flow pattern is Grade I-abnormal relaxation pattern. No left ventricle thrombus noted on this study. There is no ventricular septal defect visualized. There is no left vent ricular aneurysm. There is no mass noted in the left ventricle. RIGHT VENTRICLE The right ventricle is normal size. There is normal right ventricular wall thickness. The right ventr icular systolic function is normal. ATRIA The left atrium size is normal. The right atrium size is normal. The interatrial septum is intact wit h no evidence for an atrial septal defect or patent foramen ovale as noted on 2-D or Doppler imaging. AORTIC VALVE The aortic valve is normal in structure and function. No aortic regurgitation is present. There is no aortic valvular stenosis. There is no aortic valvular vegetation. MITRAL VALVE The mitral valve is normal in structure and function. There is no evidence of mitral valve prolapse. There is no mitral valve stenosis. There is no mitral valve regurgitation noted. TRICUSPID VALVE The tricuspid valve is normal in structure and function. Doppler and Color Flow revealed trace tricus pid regurgitation. There is no tricuspid valve prolapse or vegetation. There is no tricuspid valve st enosis. PULMONIC VALVE The pulmonary valve is normal in structure and function. There is no pulmonic valvular regurgitation. There is no pulmonic valvular stenosis. GREAT VESSELS The aortic root is normal in size. The ascending aorta is normal in size. The pulmonary artery is nor mal. The IVC is normal in size and collapses >50% with inspiration. PERICARDIAL EFFUSION There is no pleural effusion. There is no evidence of significant pericardial effusion. Critical Notification Critical Value: No <Conclusion> The left ventricular systolic function is normal. The ejection fraction is 55-60%. No regional wall motion abnormalities noted. Transmitral Doppler flow pattern is Grade I-abnormal relaxation pattern. Trace tricuspid regurgitation. There is no evidence of significant pericardial effusion. Signed by : Rocky Lucero, Electronically Approved : 08/14/2021 10:09:53
== END ==
LOC: ECHO 14:49
PROVIDERS: ATTEND Internal Medicine Cardiovascular Disease
DX: I25.10 Atherosclerotic heart disease of native coronary artery without angina pectoris (principal)
CPT/HCPCS: 93306; C8929